=== PATIENT | female | born 1960 | race Two or more races ===

== ENCOUNTER 2018-06-06 14:25 | Inpatient (IN) | payer OTHER ==
[~2018-06-06] VITALS: Ht 160 cm; Wt 75.3 kg
[2018-06-06 14:47] VITALS: BP 129/70
[2018-06-06] MEDS ORDERED: GLIPIZIDE5 MG ORAL (15:00)
[2018-06-06] MEDS ORDERED: ZOCOR20 MG ORAL (15:00)
[2018-06-06] MEDS ORDERED: METHIMAZOLE10 MG PO (15:00)
[2018-06-06] MEDS ORDERED: METFORMIN HCL1000 M1 ORAL (15:00)
[2018-06-06] MEDS ORDERED: HUMULIN N100 UNIT/1 SUBQ ×2 (15:00)
[2018-06-06] MEDS ORDERED: PROPRANOLOL HCL20 MG ORAL (15:00)
--- NOTE | 2018-06-06 15:13 | Emergency Room Report ---
History of Present Illness General Chief Complaint: Fever Source: Patient Present Illness HPI 57-year-old female, diabetes, hypertension, high cholesterol, presenting with fever chills, vomiting diarrhea, urinary frequency and dysuria for the last 4 days. Patient states that everything started on Monday where she suddenly got the chills. Since then she's had about 3 episodes of watery nonbloody diarrhea per day. Also some is nauseous and is vomiting. Can't keep anything down. Says that it pruett when she urinates. Went to her PCPs office who sent her straight to the emergency room. She took antibiotics 2 months ago, no recent travel. She did get her flu shot. She has no sick contacts Allergies: Coded Allergies: No Known Allergies (Unverified , 06/06/18) Patient History Past Medical History: see triage record Past Surgical History: none Pertinent Family History: none Reviewed Nursing Documentation: PMH: Agreed; PSxH: Agreed Nursing Documentation-PMH Past Medical History: No History, Except For Hx Diabetes: Yes Review of Systems All Other Systems: negative except mentioned in HPI Physical Exam Vital Signs Date Time Temp Pulse Resp B/P (MAP) Pulse Ox O2 Delivery O2 Flow Rate FiO2 06/06/18 14:42 98.1 94 18 129/70 98 Room Air Sp02 EP Interpretation: reviewed, normal General Appearance: alert, GCS 15, non-toxic, moderate distress Head: normocephalic, atraumatic Eyes: bilateral eye normal inspection, bilateral eye PERRL, bilateral eye EOMI ENT: normal ENT inspection, normal pharynx, normal voice, moist mucus membranes Neck: normal inspection, full range of motion, supple Respiratory: normal inspection, lungs clear, normal breath sounds, no respiratory distress, no retraction, no wheezing, speaking full sentences, chest symmetrical Cardiovascular #1: tachycardia Cardiovascular #2: 2+ radial (R), 2+ radial (L) Gastrointestinal: other - Slight suprapubic tenderness, no guarding no rebound , nontender elsewhere in her abdomen Musculoskeletal: normal inspection, back normal, normal range of motion, non- tender Neurologic: normal inspection, alert, oriented x3, responsive, motor strength/ tone normal, sensory intact, normal gait, speech normal Psychiatric: normal inspection, judgement/insight normal, memory normal Skin: normal inspection, normal color, no rash, warm/dry, well hydrated, normal turgor Procedures Critical Care Time Critical Care Time 40 minutes of CC time 57-year-old female with fever chills, septic VS: Tachycardic 140s Airway patent. Not hypoxic. PLAN: IV access, labs, lactate, troponin, Blood/Urine Cx, Abx, IVF Anticipate admission to Tele vs. [facility] CC time also includes review of labs, review of EMR, discussion with family and paperwork from SNF, d/w hospitalist CC could include dosing of pressors, additional Abx CC time does not include procedures Medical Decision Making Diagnostic Impression: Primary Impression: Sepsis Additional Impressions: Influenza UTI (urinary tract infection) ER Course 57-year-old female presented with fever chills nausea vomiting diarrhea DDX: Sepsis 2/2 UTI, PNA, infectious diarrhea, bacteremia, URI/flu Plan: IV access - 1 L bolus Obtain labs including cbc, bmp, blood culture, blood gas, lactate, ua, ucx CXR EKG ER course: Pt's airway remains patent Patient's BP has remained stable with MAP > 65 she remains tachy, given fluids zosyn for UTI and tamiflu for influenza Sepsis Re-examination Time: 5:08 VS: Temp 98.1 HR 120 BP 134/60 RR 20 CVS: RRR Respiratory: Lungs clear bilaterally Peripheral pulses: 2+ radial Capillary refill: <2 seconds Skin exam: warm, dry, no rash, not mottled Disposition: Patient will admitted to telemetry - Dr Lemos covering for Dr Lord Patient requires close monitoring of respiratory/hemodynamic status and continuation of IV antibiotics. D/W Hospitalist Please note that this Emergency Department Report was dictated using [email or web address] assistant technology software, occasionally this can lead to erroneous entry secondary to interpretation by the dictation equipment. EKG Diagnostic Results EP Interpretation: Yes Rate: Tachycardic Rhythm: NSR ST Segments: No acute ramos, PVCs ASA given to patient: No Rhythm Strip EP Interpretation: Yes Rate: 140 Rhythm: NSR, no PVCs, no ectopy Chest X-ray CXR: Ordered: Yes 1 view Indication: Fever EP interpretation: Yes Interpretation: No consolidation, no effusion, no PTX, no acute cardiopulmonary disease Impression: No acute disease Electronically signed by Ravi Rodriguez MD Last Vital Signs Date Time Temp Pulse Resp B/P (MAP) Pulse Ox O2 Delivery O2 Flow Rate FiO2 06/06/18 14:47 94 18 Room Air 06/06/18 14:42 98.1 129/70 98 Disposition: ADMITTED INPATIENT Condition: Critical Ravi Rodriguez M.D. Jun 06, 2018 15:13
[2018-06-06 15:15] LABS: ANION GAP 13 mmol/L (5-15); BLOOD UREA NITROGEN 31 mg/dL (7-18); CALCIUM 9.2 MG/DL (8.5-10.1); CARBON DIOXIDE 22 MMOL/L (21-32); CHLORIDE 93 MMOL/L (98-107); CREATININE 1.3 MG/DL (0.55-1.30); SODIUM 128 MMOL/L (136-145)
[2018-06-06 15:23] LABS: HEMATOCRIT 41.5 % (37.0-47.0); HEMOGLOBIN 13.9 G/DL (12.0-16.0); MEAN CORPUSCULAR VOLUME 79 FL (80-99); PLATELET COUNT 261 K/UL (150-450); RED BLOOD COUNT 5.23 M/UL (4.20-5.40); RED CELL DISTRIBUTION WIDTH 11.1 % (11.6-14.8)
[2018-06-06] MEDS ORDERED: Piperacillin/Tazobactam 3.375 GM in NS 110 ML IVPB ONE (15:30)
[2018-06-06 15:33] LABS: ALANINE AMINOTRANSFERASE 56 U/L (12-78); ALBUMIN 2.4 G/DL (3.4-5.0); ALBUMIN/GLOBULIN RATIO 0.4 (1.0-2.7); ALKALINE PHOSPHATASE 289 U/L (46-116); ASPARTATE AMINO TRANSFERASE 38 U/L (15-37); BILIRUBIN,TOTAL 1.5 MG/DL (0.2-1.0)
[2018-06-06 15:34] LABS: BILIRUBIN,DIRECT 0.9 MG/DL (0.0-0.3)
[2018-06-06] MEDS ORDERED: Oseltamivir 75mg cap ORAL STA (15:40)
--- NOTE | 2018-06-06 16:20 | Diagnostic Imaging Report ---
Indication: Chest pain Technique: One view of the chest Comparison: none Findings: Lungs and pleural spaces are clear. Heart size is normal Impression: No acute process
[2018-06-06 16:38] VITALS: BP 147/63
[2018-06-06 16:40] LABS: BILIRUBIN, URINE NEGATIVE (NEGATIVE); NITRITE,URINE NEGATIVE (NEGATIVE); UROBILINOGEN,URINE NORMAL MG/DL (0.0-1.0)
[2018-06-06 16:42] LABS: COLOR,URINE YELLOW; GLUCOSE, URINE (UA) 1+ (NEGATIVE); KETONES,URINE NEGATIVE (NEGATIVE); LEUKOCYTE ESTERASE ,URINE 1+ (NEGATIVE); PH,URINE 6.5 (4.5-8.0); PROTEIN,URINE 3+ (NEGATIVE)
[2018-06-06 16:47] LABS: APPEARANCE,URINE SLIGHTLY CLOUDY
[2018-06-06] MEDS ORDERED: SYNTHROID25 MCG ORAL (17:55)
[2018-06-06] MEDS ORDERED: IBUPROFEN600 MG ORAL (17:55)
[2018-06-06] MEDS ORDERED: [UNRECOGNIZED DRUG - CODE] PO (18:07)
[2018-06-06] MEDS ORDERED: GLUCOTROL5 MG ORAL (18:14)
[2018-06-06] MEDS ORDERED: INDERAL20 MG PO (18:14)
[2018-06-06] MEDS ORDERED: Acetaminophen 650mg/20.3ml NG PRN (18:15)
[2018-06-06] MEDS ORDERED: Morphine Sulfate 2mg/ml Inj IVP PRN (18:15)
[2018-06-06] MEDS ORDERED: Atorvastatin 20mg tab ORAL SCH ×2 (18:31→23:45)
--- NOTE | 2018-06-06 18:39 | History and Physical ---
History of Present Illness General Reason for Hospitalization: Fever Present Illness HPI 57 yo female with h/o htn, dm, hld presents with complaints of nausea/vomiting, fevers/chills that started on Monday. States she has been feeling worse and worse and is unsure why. States she is compliant with all of her medications. Patient denies any diarrhea/constipation however admits to burning urination since Monday as well, along with increased frequency, denies hematuria. Denies being aware of being around any sick contacts.Denies any cp, sob, palpitations. Patient admitted to the ED and noted to have a positive UA and +influenza A. Denies smoking, alcohol, or drug use. code status reviewed with patient, would like to remain full code. Allergies: Coded Allergies: No Known Allergies (Unverified , 06/06/18) Medication History Scheduled Levothyroxine Sodium* (Synthroid*), 25 MCG ORAL DAILY, (Reported) Metformin Hcl* (Metformin Hcl*), 1,000 MG ORAL BID, (Reported) Nph, Human Insulin Isophane (Humulin N), 30 UNITS SUBQ BEDTIME, (Reported) Nph, Human Insulin Isophane (Humulin N), 15 UNITS SUBQ DAILY, (Reported) Simvastatin (Zocor), 20 MG ORAL BEDTIME, (Reported) [Xl-3], 1 TAB PO Q4HR, (Reported) Scheduled PRN Ibuprofen* (Motrin*), 600 MG ORAL Q6H PRN for For Headache, (Reported) Discontinued Medications Methimazole (Methimazole), 25 MG PO BID, (Reported) Discontinued Reason: MD discontinued med Patient History History Provided By: Patient Healthcare decision maker Resuscitation status Advanced Directive on File Family History Family History: Family history was reviewed; no changes noted. Review of Systems Constitutional: Reports: chills, fever, weakness Eye: Reports: no symptoms ENT: Reports: no symptoms Respiratory: Reports: no symptoms Cardiovascular: Reports: no symptoms Gastrointestinal: Reports: no symptoms Genitourinary: Reports: dysuria, frequency Musculoskeletal: Reports: no symptoms Skin: Reports: no symptoms Psychiatric: Reports: no symptoms Neurological: Reports: no symptoms Endocrine: Reports: no symptoms Hematologic/Lymphatic: Reports: no symptoms Physical Exam General Appearance: no apparent distress, alert HEENT: normocephalic, atraumatic, anicteric, pharynx normal, supple, no JVD Neck: non-tender, normal alignment, supple Respiratory/Chest: chest wall non-tender, lungs clear, normal breath sounds, no respiratory distress, no accessory muscle use Cardiovascular/Chest: normal peripheral pulses, normal rate, regular rhythm Abdomen: normal bowel sounds, non tender, soft Extremities: normal range of motion, non-tender, normal inspection, no calf tenderness Skin Exam: normal pigmentation, warm/dry, no diaphoresis 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, no motor/sensory deficits, alert, oriented x 3, responsive, normal mood/affect Last 24 Hour Vital Signs Date Time Temp Pulse Resp B/P (MAP) Pulse Ox O2 Delivery O2 Flow Rate FiO2 06/06/18 16:38 99.0 112 24 147/63 96 Room Air 06/06/18 14:47 98.1 18 129/70 98 Room Air 06/06/18 14:47 94 18 Room Air 06/06/18 14:42 98.1 94 18 129/70 98 Room Air Laboratory Tests Test 06/06/18 14:55 06/06/18 16:08 06/06/18 16:52 White Blood Count 17.0 K/UL (4.8-10.8) H Red Blood Count 5.23 M/UL (4.20-5.40) Hemoglobin 13.9 G/DL (12.0-16.0) Hematocrit 41.5 % (37.0-47.0) Mean Corpuscular Volume 79 FL (80-99) L Mean Corpuscular Hemoglobin 26.5 PG (27.0-31.0) L Mean Corpuscular Hemoglobin Concent 33.4 G/DL (32.0-36.0) Red Cell Distribution Width 11.1 % (11.6-14.8) L Platelet Count 261 K/UL (150-450) Mean Platelet Volume 9.2 FL (6.5-10.1) Neutrophils (%) (Auto) % (45.0-75.0) Lymphocytes (%) (Auto) % (20.0-45.0) Monocytes (%) (Auto) % (1.0-10.0) Eosinophils (%) (Auto) % (0.0-3.0) Basophils (%) (Auto) % (0.0-2.0) Differential Total Cells Counted 100 Neutrophils % (Manual) 87 % (45-75) H Lymphocytes % (Manual) 7 % (20-45) L Monocytes % (Manual) 4 % (1-10) Eosinophils % (Manual) 0 % (0-3) Basophils % (Manual) 0 % (0-2) Band Neutrophils 2 % (0-8) Platelet Estimate Adequate Platelet Morphology Normal Red Blood Cell Morphology Normal Sodium Level 128 MMOL/L (136-145) L Potassium Level 3.0 MMOL/L (3.5-5.1) L Chloride Level 93 MMOL/L (98-107) L Carbon Dioxide Level 22 MMOL/L (21-32) Anion Gap 13 mmol/L (5-15) Blood Urea Nitrogen 31 mg/dL (7-18) H Creatinine 1.3 MG/DL (0.55-1.30) Estimat Glomerular Filtration Rate 42.5 mL/min (>60) Glucose Level 321 MG/DL (74-106) H Lactic Acid Level 3.40 mmol/L (0.4-2.0) H 1.80 mmol/L (0.66-2.22) Calcium Level 9.2 MG/DL (8.5-10.1) Total Bilirubin 1.5 MG/DL (0.2-1.0) H Direct Bilirubin 0.9 MG/DL (0.0-0.3) H Aspartate Amino Transf (AST/SGOT) 38 U/L (15-37) H Alanine Aminotransferase (ALT/SGPT) 56 U/L (12-78) Alkaline Phosphatase 289 U/L (46-116) H Troponin I 0.000 ng/mL (0.000-0.056) Total Protein 8.1 G/DL (6.4-8.2) Albumin 2.4 G/DL (3.4-5.0) L Globulin 5.7 g/dL Albumin/Globulin Ratio 0.4 (1.0-2.7) L Urine Color Yellow Urine Appearance Slightly cloudy Urine pH 6.5 (4.5-8.0) Urine Specific [place] 1.020 (1.005-1.035) Urine Protein 3+ (NEGATIVE) H Urine Glucose (UA) 1+ (NEGATIVE) H Urine Ketones Negative (NEGATIVE) Urine Blood 4+ (NEGATIVE) H Urine Nitrite Negative (NEGATIVE) Urine Bilirubin Negative (NEGATIVE) Urine Urobilinogen Normal MG/DL (0.0-1.0) Urine Leukocyte Esterase 1+ (NEGATIVE) H Urine RBC 5-10 /HPF (0 - 2) H Urine WBC 10-15 /HPF (0 - 2) H Urine Squamous Epithelial Cells Few /LPF (NONE/OCC) Urine Bacteria Moderate /HPF (NONE) H Microbiology Date/Time Source Procedure Growth Status 06/06/18 14:50 Nasal Nares Influenza Types A,B Antigen (TAISHA) - Final Complete Height (Feet): 5 Weight (Pounds): 170 Medications Current Medications Medications (Trade) Dose Ordered Sig/Fernanda Route PRN Reason Start Time Stop Time Status Last Admin Dose Admin Sodium Chloride 1,000 ml @ 999 mls/hr Q1H1M ONCE IV 06/06/18 17:15 06/06/18 18:15 06/06/18 17:26 Assessment/Plan Problem List: (1) Sepsis Assessment & Plan: fever T 39.9, wbc 17, LA 3.8, influenza positive, UA + for uti vanc, zosyn, and tamifly blood cx x 2 sent influenza A + tele inpatient admit i/o tylenol prn for fevers pain control IVF recheck LA ICD Codes: A41.9 - Sepsis, unspecified organism SNOMED: 71099766 (2) Influenza Assessment & Plan: tamiflu started fluids for hydration management per #1 ICD Codes: J11.1 - Influenza due to unidentified influenza virus with other respiratory manifestations SNOMED: 8791365 (3) UTI (urinary tract infection) Assessment & Plan: ua + pending Ucx cont abx ICD Codes: N39.0 - Urinary tract infection, site not specified SNOMED: 21700937 (4) Lactic acid blood increased Assessment & Plan: elevated on admit 3.6 recheck LA fluids due to sepsis ICD Codes: R79.89 - Other specified abnormal findings of blood chemistry SNOMED: 5930627 (5) Essential hypertension Assessment & Plan: resume home meds takes metoprolol 25mg bid tele ICD Codes: I10 - Essential (primary) hypertension SNOMED: 41068176 (6) Diabetes Assessment & Plan: iss accuchecks on metformin and insulin at home ppx: heparin, scd diet: ccd5 Please call at any time for any questions Thank you, Romero Lemos MD ICD Codes: E11.9 - Type 2 diabetes mellitus without complications SNOMED: 75707150 Status: stable Assessment/Plan I have spent over 70 mins in this patient's care and over 35 mins in face to face time including coordinating care. Romero Lemos MD Jun 06, 2018 18:39
[2018-06-06 18:48] VITALS: BP 102/65
[2018-06-06 19:30] VITALS: BP 110/73
[2018-06-06 21:00] VITALS: BP 105/71
[2018-06-06] MEDS: Metoprolol 25mg tab ORAL SCH (21:47)
[2018-06-06] MEDS: NovoLOG Insulin Flexpen SUBQ SCH (21:57)
[2018-06-06] MEDS: Heparin 5000 units/ml inj SUBQ SCH (21:58)
[2018-06-06] MEDS: Vancomycin 1 GM in D5W 275 ML IVPB SCH (22:02)
[2018-06-07] VITALS: BP 143/73
[2018-06-07] MEDS: Piperacillin/Tazobactam 3.375 GM in NS 110 ML IVPB SCH ×3 (01:35→17:19)
[2018-06-07 04:00] VITALS: BP 132/71
[2018-06-07 04:56] LABS: BASOPHILS % (AUTO) 0.5 % (0.0-2.0); HEMOGLOBIN 11.8 G/DL (12.0-16.0); LYMPHOCYTES % (AUTO) 6.5 % (20.0-45.0); MEAN CORPUSCULAR VOLUME 79 FL (80-99); MONOCYTES % (AUTO) 8.2 % (1.0-10.0); NEUTROPHILS % (AUTO) 84.8 % (45.0-75.0); PLATELET COUNT 212 K/UL (150-450); RED BLOOD COUNT 4.29 M/UL (4.20-5.40); RED CELL DISTRIBUTION WIDTH 11.2 % (11.6-14.8)
[2018-06-07 05:47] LABS: ANION GAP 8 mmol/L (5-15); BLOOD UREA NITROGEN 27 mg/dL (7-18); CALCIUM 8.4 MG/DL (8.5-10.1); CARBON DIOXIDE 25 MMOL/L (21-32); CHLORIDE 102 MMOL/L (98-107); SODIUM 135 MMOL/L (136-145)
[2018-06-07] MEDS: Levothyroxine 25mcg tab ORAL SCH (05:55)
[2018-06-07] MEDS: Heparin 5000 units/ml inj SUBQ SCH ×3 (06:03→22:17)
[2018-06-07] MEDS: NovoLOG Insulin Flexpen SUBQ SCH ×4 (06:03→22:11)
[2018-06-07 08:00] VITALS: BP 143/67
[2018-06-07] MEDS: GlipiZIDE 5mg tab ORAL SCH (08:24)
[2018-06-07] MEDS: Metoprolol 25mg tab ORAL SCH ×2 (08:25→20:38)
[2018-06-07] MEDS: Oseltamivir 75mg cap ORAL SCH ×2 (08:25→17:35)
--- NOTE | 2018-06-07 11:31 | General Progress Note ---
Assessment/Plan Problem List: (1) Sepsis Assessment & Plan: had fevers over night influenza + bcx pending ucx growing gram neg cont abx cont tamiflu ICD Codes: A41.9 - Sepsis, unspecified organism SNOMED: 01212364 (2) Influenza Assessment & Plan: tamiflu started fluids for hydration management per #1 ICD Codes: J11.1 - Influenza due to unidentified influenza virus with other respiratory manifestations SNOMED: 1758041 (3) UTI (urinary tract infection) Assessment & Plan: ua + Ucx groing gram neg cont abx ICD Codes: N39.0 - Urinary tract infection, site not specified SNOMED: 35895141 Qualifiers: Qualified Codes: N30.00 - Acute cystitis without hematuria (4) Lactic acid blood increased Assessment & Plan: elevated on admit 3.6 recheck [place] fluids due to sepsis ICD Codes: R79.89 - Other specified abnormal findings of blood chemistry SNOMED: 7285232 (5) Essential hypertension Assessment & Plan: resume home meds takes metoprolol 25mg bid tele ICD Codes: I10 - Essential (primary) hypertension SNOMED: 48775714 (6) Diabetes Assessment & Plan: iss accuchecks on metformin and insulin at home ppx: heparin, scd diet: ccd5 Please call at any time for any questions Thank you, Romero Lemos MD ICD Codes: E11.9 - Type 2 diabetes mellitus without complications SNOMED: 51642561 Qualifiers: Qualified Codes: E10.9 - Type 1 diabetes mellitus without complications Status: doing well, stable Assessment/Plan I have spent over 70 mins in this patient's care and over 35 mins in face to face time including coordinating care. Subjective Allergies: Coded Allergies: No Known Allergies (Unverified , 06/06/18) All Systems: reviewed and negative except above Subjective patient feeling much better today, states she had fevers and chills overnight denies any chest pain or sob states she is scared to go back home because she was so sick Objective Last 24 Hour Vital Signs Date Time Temp Pulse Resp B/P (MAP) Pulse Ox O2 Delivery O2 Flow Rate FiO2 06/07/18 08:25 112 143/67 06/07/18 08:00 96.7 112 20 143/67 (92) 98 06/07/18 04:00 97.9 107 20 132/71 (91) 96 06/07/18 04:00 104 06/07/18 02:06 99.2 06/07/18 00:00 127 06/07/18 00:00 97.7 119 20 143/73 (96) 96 06/06/18 21:47 105 110/63 06/06/18 21:09 100.1 105 25 105/71 96 Room Air 06/06/18 21:00 Room Air 06/06/18 21:00 100.1 105 25 105/71 96 Room Air 06/06/18 20:59 Room Air 06/06/18 19:58 126 06/06/18 19:30 100.1 105 25 110/73 96 Room Air 06/06/18 18:48 100.2 106 25 102/65 96 Room Air 06/06/18 17:56 100.2 06/06/18 16:38 99.0 112 24 147/63 96 Room Air 06/06/18 14:47 98.1 18 129/70 98 Room Air 06/06/18 14:47 94 18 Room Air 06/06/18 14:42 98.1 94 18 129/70 98 Room Air Intake and Output 06/06/18 06/07/18 19:00 07:00 Intake Total 2110 ml 452 ml Output Total 500 ml Balance 1610 ml 452 ml IV Total 2110 ml 452 ml Output Urine Total 500 ml # Voids 1 6 # Bowel Movements 5 Laboratory Tests 06/06/18 14:55: White Blood Count 17.0H, Red Blood Count 5.23, Hemoglobin 13.9, Hematocrit 41.5 , Mean Corpuscular Volume 79L, Mean Corpuscular Hemoglobin 26.5L, Mean Corpuscular Hemoglobin Concent 33.4, Red Cell Distribution Width 11.1L, Platelet Count 261, Mean Platelet Volume 9.2, Neutrophils (%) (Auto) , Lymphocytes (%) (Auto) , Monocytes (%) (Auto) , Eosinophils (%) (Auto) , Basophils (%) (Auto) , Differential Total Cells Counted 100, Neutrophils % ( Manual) 87H, Lymphocytes % (Manual) 7L, Monocytes % (Manual) 4, Eosinophils % ( Manual) 0, Basophils % (Manual) 0, Band Neutrophils 2, Platelet Estimate Adequate, Platelet Morphology Normal, Red Blood Cell Morphology Normal, Sodium Level 128L, Potassium Level 3.0L, Chloride Level 93L, Carbon Dioxide Level 22, Anion Gap 13, Blood Urea Nitrogen 31H, Creatinine 1.3, Estimat Glomerular Filtration Rate 42.5, Glucose Level 321H, Hemoglobin A1c 10.8H, Lactic Acid Level 3.40H, Calcium Level 9.2, Total Bilirubin 1.5H, Direct Bilirubin 0.9H, Aspartate Amino Transf (AST/SGOT) 38H, Alanine Aminotransferase (ALT/SGPT) 56, Alkaline Phosphatase 289H, Troponin I 0.000, Total Protein 8.1, Albumin 2.4L, Globulin 5.7, Albumin/Globulin Ratio 0.4L 06/06/18 16:08: Urine Color Yellow, Urine Appearance Slightly cloudy, Urine pH 6.5, Urine Specific [place] 1.020, Urine Protein 3+H, Urine Glucose (UA) 1+H, Urine Ketones Negative, Urine Blood 4+H, Urine Nitrite Negative, Urine Bilirubin Negative, Urine Urobilinogen Normal, Urine Leukocyte Esterase 1+H, Urine RBC 5- 10H, Urine WBC 10-15H, Urine Squamous Epithelial Cells Few, Urine Bacteria ModerateH 06/06/18 16:52: Lactic Acid Level 1.80 06/07/18 04:14: White Blood Count 17.0H, Red Blood Count 4.29, Hemoglobin 11.8L, Hematocrit 34.0L, Mean Corpuscular Volume 79L, Mean Corpuscular Hemoglobin 27.5, Mean Corpuscular Hemoglobin Concent 34.6, Red Cell Distribution Width 11.2L, Platelet Count 212, Mean Platelet Volume 9.3, Neutrophils (%) (Auto) 84.8H, Lymphocytes (%) (Auto) 6.5L, Monocytes (%) (Auto) 8.2, Eosinophils (%) (Auto) 0.0, Basophils (%) (Auto) 0.5, Sodium Level 135L, Potassium Level 3.0L, Chloride Level 102, Carbon Dioxide Level 25, Anion Gap 8, Blood Urea Nitrogen 27H, Creatinine 1.0, Estimat Glomerular Filtration Rate 57.6, Glucose Level 214# H, Calcium Level 8.4L Height (Feet): 5 Height (Inches): 3.00 Weight (Pounds): 173 General Appearance: no apparent distress, alert, lethargic EENT: PERRL/EOMI, normal ENT inspection, TMs normal, pharynx normal Neck: non-tender, normal alignment, supple, normal inspection Cardiovascular: normal peripheral pulses, normal rate, regular rhythm Respiratory/Chest: chest wall non-tender, lungs clear, normal breath sounds Abdomen: normal bowel sounds, non tender, soft, abnormal bowel sounds Extremities: normal range of motion, non-tender, normal inspection 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
[2018-06-07 12:00] VITALS: BP 137/66
[2018-06-07] MEDS: Insulin NPH SUBQ SCH ×2 (12:16→23:00)
[2018-06-07 16:00] VITALS: BP 145/64
[2018-06-07 20:00] VITALS: BP 111/53
[2018-06-07] MEDS: Vancomycin 1 GM in D5W 275 ML IVPB SCH (20:36)
[2018-06-08] VITALS: BP 120/63
[2018-06-08] MEDS: Piperacillin/Tazobactam 3.375 GM in NS 110 ML IVPB SCH ×3 (01:56→17:13)
[2018-06-08 04:00] VITALS: BP 134/72
[2018-06-08] MEDS: Levothyroxine 25mcg tab ORAL SCH (05:40)
[2018-06-08] MEDS: NovoLOG Insulin Flexpen SUBQ SCH ×4 (05:46→21:14)
[2018-06-08] MEDS: Heparin 5000 units/ml inj SUBQ SCH ×3 (05:49→21:21)
[2018-06-08 07:01] LABS: BASOPHILS % (AUTO) 0.8 % (0.0-2.0); EOSINOPHILS % (AUTO) 0.1 % (0.0-3.0); HEMATOCRIT 32.4 % (37.0-47.0); HEMOGLOBIN 11.4 G/DL (12.0-16.0); MEAN CORPUSCULAR VOLUME 80 FL (80-99); MONOCYTES % (AUTO) 8.3 % (1.0-10.0); NEUTROPHILS % (AUTO) 81.9 % (45.0-75.0); PLATELET COUNT 246 K/UL (150-450); RED BLOOD COUNT 4.06 M/UL (4.20-5.40); RED CELL DISTRIBUTION WIDTH 11.5 % (11.6-14.8)
[2018-06-08 07:21] LABS: ALANINE AMINOTRANSFERASE 50 U/L (12-78); ALBUMIN 1.8 G/DL (3.4-5.0); ALBUMIN/GLOBULIN RATIO 0.4 (1.0-2.7); ALKALINE PHOSPHATASE 359 U/L (46-116); ANION GAP 9 mmol/L (5-15); ASPARTATE AMINO TRANSFERASE 50 U/L (15-37); BILIRUBIN,TOTAL 2.4 MG/DL (0.2-1.0); BLOOD UREA NITROGEN 13 mg/dL (7-18); CALCIUM 8.2 MG/DL (8.5-10.1); CARBON DIOXIDE 26 MMOL/L (21-32); CHLORIDE 98 MMOL/L (98-107); CREATININE 0.8 MG/DL (0.55-1.30); SODIUM 134 MMOL/L (136-145)
[2018-06-08 07:24] LABS: POTASSIUM 2.7 MMOL/L (3.5-5.1)
[2018-06-08 07:28] LABS: BILIRUBIN,DIRECT 1.8 MG/DL (0.0-0.3)
[2018-06-08 07:51] VITALS: BP 130/76
--- NOTE | 2018-06-08 08:24 | General Progress Note ---
Assessment/Plan Problem List: (1) Sepsis Assessment & Plan: had fevers over night again feeling better influenza + ucx growing gram neg along with blood cx repeat blood cx ordered x 2 cont abx cont tamiflu IVF ICD Codes: A41.9 - Sepsis, unspecified organism SNOMED: 63678476 Qualifiers: Qualified Codes: A41.9 - Sepsis, unspecified organism (2) Gram-negative bacteremia Assessment & Plan: repeat bcx sent cont abx due to complicated uti ICD Codes: R78.81 - Bacteremia SNOMED: 431959656408 (3) Complicated UTI (urinary tract infection) Assessment & Plan: gram neg with bacteremia cont abx adjust abx accordingly ICD Codes: N39.0 - Urinary tract infection, site not specified SNOMED: 45730211 (4) Influenza Assessment & Plan: tamiflu started fluids for hydration management per #1 ICD Codes: J11.1 - Influenza due to unidentified influenza virus with other respiratory manifestations SNOMED: 3752034 (5) Lactic acid blood increased Assessment & Plan: elevated on admit 3.6 resolved due to sepsis ICD Codes: R79.89 - Other specified abnormal findings of blood chemistry SNOMED: 3410176 (6) Essential hypertension Assessment & Plan: resume home meds takes metoprolol 25mg bid tele ICD Codes: I10 - Essential (primary) hypertension SNOMED: 69359938 (7) Diabetes Assessment & Plan: iss accuchecks on metformin and insulin at home ppx: heparin, scd diet: ccd5 Please call at any time for any questions Thank you, Romero Lemos MD ICD Codes: E11.9 - Type 2 diabetes mellitus without complications SNOMED: 69003919 Qualifiers: Qualified Codes: E10.9 - Type 1 diabetes mellitus without complications Status: stable Assessment/Plan I have spent over 45 mins in this patient's care and over 35 mins in face to face time including coordinating care. Subjective Allergies: Coded Allergies: No Known Allergies (Unverified , 06/06/18) Subjective feeling better denies any fevers/chills however had fever overnight per nursing denies any chest pain or sob bcx x 2 were positive overnight, repeat ordered 12 point ros negative except for the above Objective Last 24 Hour Vital Signs Date Time Temp Pulse Resp B/P (MAP) Pulse Ox O2 Delivery O2 Flow Rate FiO2 06/08/18 07:51 98.9 99 19 130/76 (94) 97 06/08/18 04:00 99.8 115 20 134/72 (92) 95 06/08/18 04:00 125 06/08/18 00:00 98.4 106 20 120/63 (82) 96 06/08/18 00:00 104 06/07/18 21:00 Room Air 06/07/18 20:38 75 111/53 06/07/18 20:00 118 06/07/18 20:00 100.4 90 20 111/53 (72) 97 06/07/18 16:00 129 06/07/18 16:00 97.5 129 20 145/64 (91) 95 06/07/18 12:00 100.4 108 20 137/66 (89) 97 06/07/18 12:00 120 06/07/18 09:00 Room Air 06/07/18 08:25 112 143/67 Intake and Output 06/07/18 06/08/18 19:00 07:00 Intake Total 480 ml Output Total 1500 ml Balance 480 ml -1500 ml Intake Oral 480 ml Output Urine Total 1500 ml # Voids 1 # Bowel Movements 2 1 Laboratory Tests 06/08/18 06:10: White Blood Count 15.0H, Red Blood Count 4.06L, Hemoglobin 11.4L, Hematocrit 32.4L, Mean Corpuscular Volume 80, Mean Corpuscular Hemoglobin 28.1, Mean Corpuscular Hemoglobin Concent 35.2, Red Cell Distribution Width 11.5L, Platelet Count 246, Mean Platelet Volume 8.7, Neutrophils (%) (Auto) 81.9H, Lymphocytes (%) (Auto) 9.0L, Monocytes (%) (Auto) 8.3, Eosinophils (%) (Auto) 0.1, Basophils (%) (Auto) 0.8, Sodium Level 134L, Potassium Level 2.7*L, Chloride Level 98, Carbon Dioxide Level 26, Anion Gap 9, Blood Urea Nitrogen 13 , Creatinine 0.8, Estimat Glomerular Filtration Rate > 60, Glucose Level 186H, Calcium Level 8.2L, Total Bilirubin 2.4H, Direct Bilirubin 1.8H, Aspartate Amino Transf (AST/SGOT) 50H, Alanine Aminotransferase (ALT/SGPT) 50, Alkaline Phosphatase 359H, Total Protein 6.8, Albumin 1.8L, Globulin 5.0, Albumin/ Globulin Ratio 0.4L Height (Feet): 5 Height (Inches): 3.00 Weight (Pounds): 173 General Appearance: no apparent distress, alert, lethargic EENT: PERRL/EOMI, normal ENT inspection, TMs normal, pharynx normal Neck: non-tender, normal alignment, supple, normal inspection Cardiovascular: normal peripheral pulses, normal rate, regular rhythm Respiratory/Chest: chest wall non-tender, lungs clear, normal breath sounds, no respiratory distress, no accessory muscle use Abdomen: normal bowel sounds, non tender, soft, no organomegaly, no mass Extremities: normal range of motion, non-tender, normal inspection 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
[2018-06-08] MEDS: GlipiZIDE 5mg tab ORAL SCH (08:56)
[2018-06-08] MEDS: Oseltamivir 75mg cap ORAL SCH ×2 (08:56→18:26)
[2018-06-08] MEDS: Metoprolol 25mg tab ORAL SCH ×2 (08:56→21:21)
[2018-06-08] MEDS: Insulin NPH SUBQ SCH ×2 (09:01→21:18)
[2018-06-08 12:05] VITALS: BP 127/74
[2018-06-08] MEDS ORDERED: Tubing IV Secondary IV ONE (15:27)
[2018-06-08] MEDS ORDERED: NS 275ml ONE (15:27)
[2018-06-08 16:05] VITALS: BP 128/74
--- NOTE | 2018-06-08 16:39 | Cardiology Report ---
APPROVED REPORT EKG Measurement Heart [id number] MD [id number] Sinus tachycardia with occasional premature ventricular complexes Otherwise normal ECG
[2018-06-08 20:00] VITALS: BP 137/66
[2018-06-08] MEDS: Vancomycin 1 GM in D5W 275 ML IVPB SCH (21:15)
[2018-06-08] MEDS: Guaifenesin/DM 10ml syrup ORAL PRN (23:00)
[2018-06-09] VITALS: BP 148/73
[2018-06-09] MEDS: Piperacillin/Tazobactam 3.375 GM in NS 110 ML IVPB SCH (00:43)
[2018-06-09 04:00] VITALS: BP 142/72
[2018-06-09] MEDS: Levothyroxine 25mcg tab ORAL SCH (06:05)
[2018-06-09] MEDS: Heparin 5000 units/ml inj SUBQ SCH ×3 (06:05→21:34)
[2018-06-09] MEDS: NovoLOG Insulin Flexpen SUBQ SCH ×4 (06:05→21:00)
[2018-06-09] MEDS: Guaifenesin/DM 10ml syrup ORAL PRN ×3 (06:39→21:21)
[2018-06-09 07:58] LABS: BASOPHILS % (AUTO) 0.3 % (0.0-2.0); EOSINOPHILS % (AUTO) 0.4 % (0.0-3.0); HEMOGLOBIN 10.4 G/DL (12.0-16.0); LYMPHOCYTES % (AUTO) 12.4 % (20.0-45.0); MEAN CORPUSCULAR VOLUME 80 FL (80-99); NEUTROPHILS % (AUTO) 77.9 % (45.0-75.0); PLATELET COUNT 263 K/UL (150-450); RED BLOOD COUNT 3.87 M/UL (4.20-5.40); RED CELL DISTRIBUTION WIDTH 11.9 % (11.6-14.8); WHITE BLOOD COUNT 15.8 K/UL (4.8-10.8)
--- NOTE | 2018-06-09 08:03 | General Progress Note ---
Assessment/Plan Problem List: (1) Bacteremia due to Klebsiella pneumoniae Assessment & Plan: abx changed to lvq repeat bcx showing similar growth ID consulted repeat bcx sent ICD Codes: R78.81 - Bacteremia SNOMED: 443909011, 735120748405 (2) UTI due to Klebsiella species Assessment & Plan: cont abx ID consulted ICD Codes: N39.0 - Urinary tract infection, site not specified; B96.1 - Klebsiella pneumoniae [K. pneumoniae] as the cause of diseases classified elsewhere SNOMED: 096474285707093 (3) Sepsis Assessment & Plan: stable repeat bcx + due to klebsiella and influenza A sens to lvq ID consulted, appreciate recs ICD Codes: A41.9 - Sepsis, unspecified organism SNOMED: 42827275 Qualifiers: Qualified Codes: A41.9 - Sepsis, unspecified organism (4) Complicated UTI (urinary tract infection) Assessment & Plan: due to above cont above management ICD Codes: N39.0 - Urinary tract infection, site not specified SNOMED: 09282894 (5) Influenza Assessment & Plan: tamiflu started fluids for hydration management per above ICD Codes: J11.1 - Influenza due to unidentified influenza virus with other respiratory manifestations SNOMED: 7202349 (6) Lactic acid blood increased Assessment & Plan: elevated on admit 3.6 resolved due to sepsis ICD Codes: R79.89 - Other specified abnormal findings of blood chemistry SNOMED: 7054621 (7) Essential hypertension Assessment & Plan: resume home meds takes metoprolol 25mg bid tele ICD Codes: I10 - Essential (primary) hypertension SNOMED: 16716821 (8) Diabetes Assessment & Plan: iss accuchecks on metformin and insulin at home ppx: heparin, scd diet: ccd5 Please call at any time for any questions Thank you, Romero Lemos MD ICD Codes: E11.9 - Type 2 diabetes mellitus without complications SNOMED: 53699137 Qualifiers: Qualified Codes: E10.9 - Type 1 diabetes mellitus without complications Status: stable Assessment/Plan I have spent over 45 mins in this patient's care and over 35 mins in face to face time including coordinating care. Subjective Allergies: Coded Allergies: No Known Allergies (Unverified , 06/06/18) Subjective denies any complaints feeling better bcx and repeat bcx along with ucx growing klebsiella, sens to lvq repeat bcx sent denies fevers/chills/nausea/vomiting/cp/sob 12 point ros negative except for the above Objective Last 24 Hour Vital Signs Date Time Temp Pulse Resp B/P (MAP) Pulse Ox O2 Delivery O2 Flow Rate FiO2 06/09/18 04:00 116 06/09/18 04:00 99.1 105 19 142/72 (95) 95 06/09/18 01:00 108 06/09/18 00:00 99.1 104 20 148/73 (98) 96 06/09/18 00:00 93 06/08/18 21:21 108 137/66 06/08/18 21:00 Room Air 06/08/18 20:00 99.5 108 20 137/66 (89) 96 06/08/18 20:00 116 06/08/18 16:05 96.8 101 20 128/74 (92) 96 06/08/18 15:28 107 06/08/18 12:05 98.6 95 20 127/74 (91) 97 06/08/18 12:00 97 06/08/18 09:33 Room Air 06/08/18 08:56 100 130/76 06/08/18 08:00 100 Intake and Output 06/08/18 06/09/18 19:00 07:00 Intake Total 1400 ml 800 ml Output Total 1800 ml 2500 ml Balance -400 ml -1700 ml Intake Oral 1400 ml 800 ml Output Urine Total 1800 ml 2500 ml # Voids 1 # Bowel Movements 2 Laboratory Tests 06/08/18 23:20: Potassium Level 2.7*L 06/09/18 06:02: Potassium Level [Pending], White Blood Count [Pending], Red Blood Count [Pending ], Hemoglobin [Pending], Hematocrit [Pending], Mean Corpuscular Volume [Pending] , Mean Corpuscular Hemoglobin [Pending], Mean Corpuscular Hemoglobin Concent [ Pending], Red Cell Distribution Width [Pending], Platelet Count [Pending], Mean Platelet Volume [Pending], Neutrophils (%) (Auto) [Pending], Lymphocytes (%) ( Auto) [Pending], Monocytes (%) (Auto) [Pending], Eosinophils (%) (Auto) [Pending ], Basophils (%) (Auto) [Pending], Sodium Level [Pending], Chloride Level [ Pending], Carbon Dioxide Level [Pending], Blood Urea Nitrogen [Pending], Creatinine [Pending], Estimat Glomerular Filtration Rate [Pending], Glucose Level [Pending], Calcium Level [Pending] Height (Feet): 5 Height (Inches): 3.00 Weight (Pounds): 173 General Appearance: no apparent distress, alert EENT: PERRL/EOMI, TMs normal, pharynx normal Neck: non-tender, normal alignment, supple, normal inspection Cardiovascular: normal peripheral pulses, normal rate, regular rhythm Respiratory/Chest: chest wall non-tender, lungs clear, normal breath sounds, no respiratory distress, no accessory muscle use Abdomen: normal bowel sounds, non tender, soft, no organomegaly, no mass Extremities: normal range of motion, non-tender, normal inspection 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
[2018-06-09 08:13] LABS: ANION GAP 7 mmol/L (5-15); BLOOD UREA NITROGEN 11 mg/dL (7-18); CALCIUM 8.1 MG/DL (8.5-10.1); CARBON DIOXIDE 31 MMOL/L (21-32); CHLORIDE 104 MMOL/L (98-107); CREATININE 0.6 MG/DL (0.55-1.30); POTASSIUM 3.1 MMOL/L (3.5-5.1); SODIUM 142 MMOL/L (136-145)
[2018-06-09 08:15] VITALS: BP 127/68
[2018-06-09] MEDS: Metoprolol 25mg tab ORAL SCH ×2 (09:23→21:22)
[2018-06-09] MEDS: Oseltamivir 75mg cap ORAL SCH ×2 (09:23→17:25)
[2018-06-09] MEDS: GlipiZIDE 5mg tab ORAL SCH (09:23)
[2018-06-09] MEDS: Insulin NPH SUBQ SCH ×2 (09:32→21:32)
--- NOTE | 2018-06-09 10:56 | Consultation ---
Consult Note Consult Note # [id number] Ollie Miguel MD Jun 09, 2018 10:56
[2018-06-09 12:00] VITALS: BP 139/69
--- NOTE | 2018-06-09 15:26 | Diagnostic Imaging Report ---
EXAM: US Abdomen Complete CLINICAL HISTORY: ABD PAIN TECHNIQUE: Real-time ultrasound of the abdomen (complete) with image documentation. COMPARISON: No relevant prior studies available. FINDINGS: Liver: Dense enlarged liver may be fatty. Liver measures 19.3 cm. No intrahepatic bile duct dilation. Gallbladder: Gallbladder wall normal, 1.7 mm. No gallstones. Negative Dickinson's sign. 2 Common bile duct: CBD normal, 4.4 mm. No stones. No dilation. Pancreas: Unremarkable as visualized. Kidneys: Right kidney measures 13.6 x 6.3 x 7.8 cm. Left kidney measures 12.8 x 5.6 x 6.7 cm. No stones. No hydronephrosis. Spleen: Spleen measures 10.5 cm. Aorta: Unremarkable. No aneurysm. Inferior vena cava: Unremarkable. IMPRESSION: 1. Dense enlarged liver may be fatty. 2. No cholelithiasis or acute cholecystitis.
--- NOTE | 2018-06-09 15:45 | Consultation ---
DATE OF CONSULTATION: 06/09/2018 INFECTIOUS DISEASES CONSULTATION CONSULTING PHYSICIAN: Ollie Miguel M.D. REFERRING PHYSICIAN: Dr. Romero Lemos. REASON FOR CONSULTATION: Evaluation of the patient for bacteremia, UTI, influenza. HISTORY OF PRESENT ILLNESS: The patient is a 57-year-old female with multiple medical problems as listed below, who was admitted to this medical center due to nausea, vomiting, fever, and chills. The patient also has been having dysuria. Workup was suggestive of urinary tract infection. Urine culture is growing klebsiella. Antibiotic treatment, the patient still has persistent bacteremia. Fever has improved. Overall, the patient is feeling better. The patient has worsening of liver function test. Infectious Disease consultation has been requested for further evaluation of the patient's antibiotic management. The patient's also rapid influenza A test came positive at the time of admission. PAST MEDICAL HISTORY: 1. . 2. Hyperlipidemia. 3. Hypertension. 4. Diabetes. MEDICATIONS: Levaquin. PHYSICAL EXAMINATION: VITAL SIGNS: Temperature 98.4, blood pressure 122/68, pulse 109, respiratory rate 18, and T-max 100.4. HEENT: No pale conjunctivae. No icterus. NECK: No lymphadenopathy. CHEST: Clear. HEART: S1 and S2. ABDOMEN: Soft, obese, mild epigastric tenderness. No flank tenderness at the time of exam. EXTREMITIES: No cyanosis at this time. NEUROLOGIC: Currently awake and alert. LABORATORY AND DIAGNOSTIC DATA: White blood cells 15.8, hemoglobin 10, platelets 265,000. UA, 10 to 15 white blood cells. BUN 11, creatinine 0.8. AST 50, ALT 50, alkaline phosphatase 259. Total bilirubin 2.4. Direct bilirubin 1.8. Blood culture is growing klebsiella. Urine culture is growing klebsiella. Chest x-ray, NAPD. Rapid influenza A test positive. ASSESSMENT: The patient is a 57-year-old female with multiple medical problems, who has: 1. Fever. 2. Leukocytosis. 3. Influenza A positive. 4. Urinary tract infection (Klebsiella pneumoniae, rule out probable urinary obstruction). 5. Bacteremia due to urinary tract infection. 6. Elevated alkaline phosphatase and hyperbilirubinemia, rule out urinary obstruction/cholangitis. 7. Anemia. PLAN: 1. We will continue the patient on Tamiflu day #2/5, we will continue the patient on Levaquin day #1. 2. Status post Zosyn day #2. 3. Monitor repeat blood cultures. 4. Ultrasound of the abdomen, evaluation of the trach/liver/rule out urinary obstruction. 5. Monitor CBC. 6. Monitor BMP. 7. Monitor liver function tests. 8. Based on the patient's clinical course and labs, we will do further recommendation. Thank you, Dr. Lemos, for allowing me to participate in the care of this patient. I will follow the patient with you during this hospitalization. Aaron Bush JOB#: [id number] CC:
[2018-06-09 15:58] VITALS: BP 131/64
[2018-06-09 20:00] VITALS: BP 121/68
[2018-06-10] VITALS: BP 141/70
[2018-06-10 04:00] VITALS: BP 141/77
[2018-06-10 06:00] LABS: BASOPHILS % (AUTO) 0.9 % (0.0-2.0); EOSINOPHILS % (AUTO) 0.3 % (0.0-3.0); HEMATOCRIT 31.6 % (37.0-47.0); HEMOGLOBIN 10.6 G/DL (12.0-16.0); LYMPHOCYTES % (AUTO) 9.3 % (20.0-45.0); MEAN CORPUSCULAR VOLUME 80 FL (80-99); MONOCYTES % (AUTO) 9.7 % (1.0-10.0); NEUTROPHILS % (AUTO) 79.9 % (45.0-75.0); PLATELET COUNT 327 K/UL (150-450); RED BLOOD COUNT 3.94 M/UL (4.20-5.40); RED CELL DISTRIBUTION WIDTH 11.8 % (11.6-14.8)
[2018-06-10 06:11] LABS: ANION GAP 9 mmol/L (5-15); BLOOD UREA NITROGEN 11 mg/dL (7-18); CALCIUM 8.5 MG/DL (8.5-10.1); CARBON DIOXIDE 31 MMOL/L (21-32); CHLORIDE 102 MMOL/L (98-107); CREATININE 0.7 MG/DL (0.55-1.30); SODIUM 142 MMOL/L (136-145)
[2018-06-10] MEDS: Levothyroxine 25mcg tab ORAL SCH (06:20)
[2018-06-10 06:24] LABS: POTASSIUM 2.7 MMOL/L (3.5-5.1)
[2018-06-10] MEDS: Heparin 5000 units/ml inj SUBQ SCH ×3 (06:27→22:11)
[2018-06-10] MEDS: NovoLOG Insulin Flexpen SUBQ SCH ×4 (06:27→22:12)
--- NOTE | 2018-06-10 06:45 | General Progress Note ---
Assessment/Plan Problem List: (1) Bacteremia due to Klebsiella pneumoniae Assessment & Plan: abx changed to lvq repeat bcx showing similar growth ID consulted, US abd showing fatty liver repeat bcx sent pending ICD Codes: R78.81 - Bacteremia SNOMED: 168396580, 013629850270 (2) UTI due to Klebsiella species Assessment & Plan: cont abx ID consulted ICD Codes: N39.0 - Urinary tract infection, site not specified; B96.1 - Klebsiella pneumoniae [K. pneumoniae] as the cause of diseases classified elsewhere SNOMED: 843785251563409 (3) Sepsis Assessment & Plan: stable repeat bcx + due to klebsiella and influenza A sens to lvq ID consulted, appreciate recs ICD Codes: A41.9 - Sepsis, unspecified organism SNOMED: 08157818 Qualifiers: Qualified Codes: A41.9 - Sepsis, unspecified organism (4) Complicated UTI (urinary tract infection) Assessment & Plan: due to above cont above management ICD Codes: N39.0 - Urinary tract infection, site not specified SNOMED: 91438622 (5) Influenza Assessment & Plan: tamiflu started fluids for hydration management per above ICD Codes: J11.1 - Influenza due to unidentified influenza virus with other respiratory manifestations SNOMED: 4544574 (6) Lactic acid blood increased Assessment & Plan: elevated on admit 3.6 resolved due to sepsis ICD Codes: R79.89 - Other specified abnormal findings of blood chemistry SNOMED: 0874896 (7) Essential hypertension Assessment & Plan: resume home meds takes metoprolol 25mg bid tele ICD Codes: I10 - Essential (primary) hypertension SNOMED: 36794472 (8) Diabetes Assessment & Plan: iss accuchecks on metformin and insulin at home ppx: heparin, scd diet: ccd5 Please call at any time for any questions Thank you, Romero Lemos MD ICD Codes: E11.9 - Type 2 diabetes mellitus without complications SNOMED: 44560838 Qualifiers: Qualified Codes: E10.9 - Type 1 diabetes mellitus without complications (9) Hypomagnesemia Assessment & Plan: replenish monitor ICD Codes: E83.42 - Hypomagnesemia SNOMED: 436468540 (10) Hypokalemia Assessment & Plan: k 2.7 replenish k and mg ICD Codes: E87.6 - Hypokalemia SNOMED: 93488634 Assessment/Plan I have spent over 45 mins in this patient's care and over 35 mins in face to face time including coordinating care. Subjective Allergies: Coded Allergies: No Known Allergies (Unverified , 06/06/18) Subjective no acute events overnight denies any complaints denies fevers/chills/nausea/vomiting 12 point ros negative except for the above Objective Last 24 Hour Vital Signs Date Time Temp Pulse Resp B/P (MAP) Pulse Ox O2 Delivery O2 Flow Rate FiO2 06/10/18 04:00 113 06/10/18 04:00 100.1 133 22 141/77 (98) 93 06/10/18 00:00 99.6 103 20 141/70 (93) 98 06/10/18 00:00 116 06/09/18 21:22 104 140/72 06/09/18 21:00 Room Air 06/09/18 20:00 99.0 99 20 121/68 (85) 96 06/09/18 20:00 114 06/09/18 16:00 100 06/09/18 15:58 99.1 103 22 131/64 (86) 93 06/09/18 12:00 109 06/09/18 12:00 98.6 108 20 139/69 (92) 95 06/09/18 09:23 109 127/68 06/09/18 09:00 Room Air 06/09/18 08:15 98.4 109 22 127/68 (87) 95 06/09/18 07:43 108 Intake and Output 06/09/18 06/10/18 18:59 06:59 Intake Total 1500 ml 800 ml Output Total 1600 ml 2325 ml Balance -100 ml -1525 ml Intake Oral 1500 ml 800 ml Output Urine Total 1600 ml 2325 ml # Voids 1 2 # Bowel Movements 2 Laboratory Tests 06/10/18 05:50: White Blood Count 16.0H, Red Blood Count 3.94L, Hemoglobin 10.6L, Hematocrit 31.6L, Mean Corpuscular Volume 80, Mean Corpuscular Hemoglobin 26.8L, Mean Corpuscular Hemoglobin Concent 33.4, Red Cell Distribution Width 11.8, Platelet Count 327, Mean Platelet Volume 8.3, Neutrophils (%) (Auto) 79.9H, Lymphocytes ( %) (Auto) 9.3L, Monocytes (%) (Auto) 9.7, Eosinophils (%) (Auto) 0.3, Basophils (%) (Auto) 0.9, Sodium Level 142, Potassium Level 2.7*L, Chloride Level 102, Carbon Dioxide Level 31, Anion Gap 9, Blood Urea Nitrogen 11, Creatinine 0.7, Estimat Glomerular Filtration Rate > 60, Glucose Level 111H, Calcium Level 8.5 Height (Feet): 5 Height (Inches): 3.00 Weight (Pounds): 173 General Appearance: no apparent distress, alert EENT: PERRL/EOMI, normal ENT inspection, TMs normal, pharynx normal Neck: non-tender, normal alignment, supple, normal inspection Cardiovascular: normal peripheral pulses, normal rate, regular rhythm Respiratory/Chest: chest wall non-tender, lungs clear, normal breath sounds, no respiratory distress, no accessory muscle use Abdomen: normal bowel sounds, non tender, soft, no organomegaly, no mass Extremities: normal range of motion, non-tender, normal inspection, no calf tenderness 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
[2018-06-10] MEDS: Guaifenesin/DM 10ml syrup ORAL PRN ×3 (06:56→22:09)
[2018-06-10 08:00] VITALS: BP 120/59
[2018-06-10] MEDS: Oseltamivir 75mg cap ORAL SCH ×2 (10:08→17:14)
[2018-06-10] MEDS: Metoprolol 25mg tab ORAL SCH ×2 (10:09→22:09)
[2018-06-10] MEDS: GlipiZIDE 5mg tab ORAL SCH (10:09)
[2018-06-10] MEDS: Insulin NPH SUBQ SCH ×2 (10:12→22:13)
[2018-06-10 12:47] VITALS: BP 133/70
[2018-06-10 16:00] VITALS: BP 152/85
[2018-06-10 20:00] VITALS: BP 149/77
--- NOTE | 2018-06-10 21:52 | Infectious Diseases Prog Note ---
Subjective Allergies: Coded Allergies: No Known Allergies (Unverified , 06/06/18) Objective Vital Signs Last 24 Hour Vital Signs Date Time Temp Pulse Resp B/P (MAP) Pulse Ox O2 Delivery O2 Flow Rate FiO2 06/10/18 20:00 99.0 113 20 149/77 (101) 96 06/10/18 16:00 100 06/10/18 16:00 99.1 101 20 152/85 (107) 98 98 06/10/18 12:53 94 06/10/18 12:51 79 06/10/18 12:47 97.7 97 20 133/70 (91) 96 97 06/10/18 10:09 106 120/59 06/10/18 09:30 Room Air 06/10/18 08:00 97.5 106 20 120/59 (79) 95 06/10/18 07:53 125 06/10/18 04:00 113 06/10/18 04:00 100.1 133 22 141/77 (98) 93 06/10/18 00:00 99.6 103 20 141/70 (93) 98 06/10/18 00:00 116 Height (Feet): 5 Height (Inches): 3.00 Weight (Pounds): 173 Microbiology Date/Time Source Procedure Growth Status 06/08/18 09:00 Blood Blood Culture - Preliminary NO GROWTH AFTER 24 HOURS Resulted 06/08/18 08:45 Blood Blood Culture - Preliminary Gram Negative Bacillus 1 Resulted 06/09/18 02:15 Stool Clostridium difficile Toxin Assay - Final Complete Laboratory Tests Test 06/10/18 05:50 White Blood Count 16.0 K/UL (4.8-10.8) H Red Blood Count 3.94 M/UL (4.20-5.40) L Hemoglobin 10.6 G/DL (12.0-16.0) L Hematocrit 31.6 % (37.0-47.0) L Mean Corpuscular Volume 80 FL (80-99) Mean Corpuscular Hemoglobin 26.8 PG (27.0-31.0) L Mean Corpuscular Hemoglobin Concent 33.4 G/DL (32.0-36.0) Red Cell Distribution Width 11.8 % (11.6-14.8) Platelet Count 327 K/UL (150-450) Mean Platelet Volume 8.3 FL (6.5-10.1) Neutrophils (%) (Auto) 79.9 % (45.0-75.0) H Lymphocytes (%) (Auto) 9.3 % (20.0-45.0) L Monocytes (%) (Auto) 9.7 % (1.0-10.0) Eosinophils (%) (Auto) 0.3 % (0.0-3.0) Basophils (%) (Auto) 0.9 % (0.0-2.0) Sodium Level 142 MMOL/L (136-145) Potassium Level 2.7 MMOL/L (3.5-5.1) *L Chloride Level 102 MMOL/L (98-107) Carbon Dioxide Level 31 MMOL/L (21-32) Anion Gap 9 mmol/L (5-15) Blood Urea Nitrogen 11 mg/dL (7-18) Creatinine 0.7 MG/DL (0.55-1.30) Estimat Glomerular Filtration Rate > 60 mL/min (>60) Glucose Level 111 MG/DL (74-106) H Calcium Level 8.5 MG/DL (8.5-10.1) Magnesium Level 1.6 MG/DL (1.8-2.4) L Current Medications Medications (Trade) Dose Ordered Sig/Fernanda Route PRN Reason Start Time Stop Time Status Last Admin Dose Admin Acetaminophen (Tylenol) 650 mg Q8H PRN ORAL fever 06/06/18 18:16 07/06/18 18:14 06/08/18 05:43 Dextrose (Dextrose 50%) 25 ml Q30M PRN IV Hypoglycemia 06/07/18 11:30 07/07/18 11:29 Dextrose (Dextrose 50%) 50 ml Q30M PRN IV Hypoglycemia 06/07/18 11:30 07/07/18 11:29 Glipizide (Glucotrol) 10 mg DAILY ORAL 06/07/18 09:00 07/07/18 08:59 06/10/18 10:09 Guaifenesin/ Dextromethorphan (Robitussin DM Syrup) 10 ml Q4H PRN ORAL For Cough 06/08/18 22:30 07/08/18 22:29 06/10/18 12:21 Heparin Sodium (Porcine) (Heparin 5000 units/ml) 5,000 units EVERY 8 HOURS SUBQ 06/06/18 22:00 07/06/18 21:59 06/10/18 14:43 Insulin Aspart (NovoLOG) BEFORE MEALS AND HS SUBQ 06/06/18 21:00 07/06/18 20:59 06/10/18 17:17 Insulin Human NPH (Humulin N) 15 units DAILY SUBQ 06/07/18 13:00 07/07/18 12:59 06/10/18 10:12 Insulin Human NPH (Humulin N) 30 units BEDTIME SUBQ 06/07/18 23:00 07/07/18 22:59 06/09/18 21:32 Levofloxacin 150 ml @ 100 mls/hr Q24H IVPB 06/09/18 09:00 06/16/18 08:59 06/10/18 10:10 Levothyroxine Sodium (Synthroid) 25 mcg Q24H ORAL 06/07/18 06:30 07/07/18 06:29 06/10/18 06:20 Metoprolol Tartrate (Lopressor) 25 mg Q12HR ORAL 06/06/18 21:00 07/06/18 20:59 06/10/18 10:09 Morphine Sulfate (Morphine Sulfate) 2 mg Q6H PRN IVP For Pain 06/06/18 18:15 06/13/18 18:14 Ondansetron HCl (Zofran) 4 mg Q6H PRN IVP Nausea & Vomiting 06/09/18 08:00 07/09/18 07:59 06/10/18 14:40 Oseltamivir Phosphate (Tamiflu) 75 mg TWICE A DAY ORAL 06/07/18 09:00 06/12/18 08:59 06/10/18 17:14 Potassium Chloride (K-Dur) 40 meq TWICE A DAY ORAL 06/10/18 09:00 07/10/18 08:59 06/10/18 17:14 Sodium Chloride 1,000 ml @ 125 mls/hr Q8H IV 06/06/18 18:58 07/06/18 18:57 06/10/18 19:26 Ollie Miguel MD Jun 10, 2018 21:52
--- NOTE | 2018-06-10 23:08 | Infectious Diseases Prog Note ---
Assessment/Plan Assessment/Plan ASSESSMENT: The patient is a 57-year-old female with multiple medical problems, who has: Fever. Leukocytosis. Influenza A positive. Urinary tract infection (Klebsiella pneumoniae, rule out probable urinary obstruction). Bacteremia due to urinary tract infection Elevated alkaline phosphatase and hyperbilirubinemia US no evid of urinary obstruction/cholangitis Anemia Hyperlipidemia. Hypertension. Diabetes. PLAN: continue the patient on Tamiflu day # 3 /5, continue the patient on Levaquin day # 2 ( may change to Merrem if WBC does not improve in AM) 06/09 SP Zosyn day #2 Monitor repeat blood cultures Monitor CBC Monitor BMP. Monitor liver function tests CT of A/P ( if WBC does not improve in AM) Subjective Constitutional: Denies: no symptoms, fever, chills, fatigue, anorexia, drenching sweats, other Allergies: Coded Allergies: No Known Allergies (Unverified , 06/06/18) Objective Vital Signs Last 24 Hour Vital Signs Date Time Temp Pulse Resp B/P (MAP) Pulse Ox O2 Delivery O2 Flow Rate FiO2 06/10/18 22:09 113 149/77 06/10/18 21:00 Room Air 06/10/18 20:00 99.0 113 20 149/77 (101) 96 06/10/18 16:00 100 06/10/18 16:00 99.1 101 20 152/85 (107) 98 98 06/10/18 12:53 94 06/10/18 12:51 79 06/10/18 12:47 97.7 97 20 133/70 (91) 96 97 06/10/18 10:09 106 120/59 06/10/18 09:30 Room Air 06/10/18 08:00 97.5 106 20 120/59 (79) 95 06/10/18 07:53 125 06/10/18 04:00 113 06/10/18 04:00 100.1 133 22 141/77 (98) 93 06/10/18 00:00 99.6 103 20 141/70 (93) 98 06/10/18 00:00 116 Height (Feet): 5 Height (Inches): 3.00 Weight (Pounds): 173 HEENT: anicteric Respiratory/Chest: no accessory muscle use Cardiovascular: regularly irregular Abdomen: no organomegaly Microbiology Date/Time Source Procedure Growth Status 06/08/18 09:00 Blood Blood Culture - Preliminary NO GROWTH AFTER 24 HOURS Resulted 06/08/18 08:45 Blood Blood Culture - Preliminary Gram Negative Bacillus 1 Resulted 06/09/18 02:15 Stool Clostridium difficile Toxin Assay - Final Complete Laboratory Tests Test 06/10/18 05:50 White Blood Count 16.0 K/UL (4.8-10.8) H Red Blood Count 3.94 M/UL (4.20-5.40) L Hemoglobin 10.6 G/DL (12.0-16.0) L Hematocrit 31.6 % (37.0-47.0) L Mean Corpuscular Volume 80 FL (80-99) Mean Corpuscular Hemoglobin 26.8 PG (27.0-31.0) L Mean Corpuscular Hemoglobin Concent 33.4 G/DL (32.0-36.0) Red Cell Distribution Width 11.8 % (11.6-14.8) Platelet Count 327 K/UL (150-450) Mean Platelet Volume 8.3 FL (6.5-10.1) Neutrophils (%) (Auto) 79.9 % (45.0-75.0) H Lymphocytes (%) (Auto) 9.3 % (20.0-45.0) L Monocytes (%) (Auto) 9.7 % (1.0-10.0) Eosinophils (%) (Auto) 0.3 % (0.0-3.0) Basophils (%) (Auto) 0.9 % (0.0-2.0) Sodium Level 142 MMOL/L (136-145) Potassium Level 2.7 MMOL/L (3.5-5.1) *L Chloride Level 102 MMOL/L (98-107) Carbon Dioxide Level 31 MMOL/L (21-32) Anion Gap 9 mmol/L (5-15) Blood Urea Nitrogen 11 mg/dL (7-18) Creatinine 0.7 MG/DL (0.55-1.30) Estimat Glomerular Filtration Rate > 60 mL/min (>60) Glucose Level 111 MG/DL (74-106) H Calcium Level 8.5 MG/DL (8.5-10.1) Magnesium Level 1.6 MG/DL (1.8-2.4) L Current Medications Medications (Trade) Dose Ordered Sig/Fernanda Route PRN Reason Start Time Stop Time Status Last Admin Dose Admin Acetaminophen (Tylenol) 650 mg Q8H PRN ORAL fever 06/06/18 18:16 07/06/18 18:14 06/08/18 05:43 Dextrose (Dextrose 50%) 25 ml Q30M PRN IV Hypoglycemia 06/07/18 11:30 07/07/18 11:29 Dextrose (Dextrose 50%) 50 ml Q30M PRN IV Hypoglycemia 06/07/18 11:30 07/07/18 11:29 Glipizide (Glucotrol) 10 mg DAILY ORAL 06/07/18 09:00 07/07/18 08:59 06/10/18 10:09 Guaifenesin/ Dextromethorphan (Robitussin DM Syrup) 10 ml Q4H PRN ORAL For Cough 06/08/18 22:30 07/08/18 22:29 06/10/18 22:09 Heparin Sodium (Porcine) (Heparin 5000 units/ml) 5,000 units EVERY 8 HOURS SUBQ 06/06/18 22:00 07/06/18 21:59 06/10/18 22:11 Insulin Aspart (NovoLOG) BEFORE MEALS AND HS SUBQ 06/06/18 21:00 07/06/18 20:59 06/10/18 22:12 Insulin Human NPH (Humulin N) 15 units DAILY SUBQ 06/07/18 13:00 07/07/18 12:59 06/10/18 10:12 Insulin Human NPH (Humulin N) 30 units BEDTIME SUBQ 06/07/18 23:00 07/07/18 22:59 06/10/18 22:13 Levofloxacin 150 ml @ 100 mls/hr Q24H IVPB 06/09/18 09:00 06/16/18 08:59 06/10/18 10:10 Levothyroxine Sodium (Synthroid) 25 mcg Q24H ORAL 06/07/18 06:30 07/07/18 06:29 06/10/18 06:20 Metoprolol Tartrate (Lopressor) 25 mg Q12HR ORAL 06/06/18 21:00 07/06/18 20:59 06/10/18 22:09 Morphine Sulfate (Morphine Sulfate) 2 mg Q6H PRN IVP For Pain 06/06/18 18:15 06/13/18 18:14 Ondansetron HCl (Zofran) 4 mg Q6H PRN IVP Nausea & Vomiting 06/09/18 08:00 07/09/18 07:59 06/10/18 14:40 Oseltamivir Phosphate (Tamiflu) 75 mg TWICE A DAY ORAL 06/07/18 09:00 06/12/18 08:59 06/10/18 17:14 Potassium Chloride (K-Dur) 40 meq TWICE A DAY ORAL 06/10/18 09:00 07/10/18 08:59 06/10/18 17:14 Sodium Chloride 1,000 ml @ 125 mls/hr Q8H IV 06/06/18 18:58 07/06/18 18:57 06/10/18 19:26 Ollie Miguel MD Jun 10, 2018 23:07
[2018-06-11] VITALS: BP 136/92
[2018-06-11 04:00] VITALS: BP 127/63
[2018-06-11] MEDS: Levothyroxine 25mcg tab ORAL SCH (06:30)
[2018-06-11] MEDS: Heparin 5000 units/ml inj SUBQ SCH ×3 (06:33→22:28)
[2018-06-11] MEDS: NovoLOG Insulin Flexpen SUBQ SCH ×4 (06:33→22:27)
[2018-06-11 08:00] VITALS: BP 127/84
[2018-06-11 08:01] LABS: BASOPHILS % (AUTO) 0.8 % (0.0-2.0); HEMATOCRIT 30.2 % (37.0-47.0); HEMOGLOBIN 10.3 G/DL (12.0-16.0); MEAN CORPUSCULAR VOLUME 81 FL (80-99); NEUTROPHILS % (AUTO) 78.3 % (45.0-75.0); PLATELET COUNT 343 K/UL (150-450); RED BLOOD COUNT 3.74 M/UL (4.20-5.40); RED CELL DISTRIBUTION WIDTH 12.4 % (11.6-14.8); WHITE BLOOD COUNT 16.5 K/UL (4.8-10.8)
[2018-06-11 08:08] LABS: ANION GAP 9 mmol/L (5-15); BLOOD UREA NITROGEN 12 mg/dL (7-18); CALCIUM 8.6 MG/DL (8.5-10.1); CARBON DIOXIDE 27 MMOL/L (21-32); CHLORIDE 105 MMOL/L (98-107); CREATININE 0.6 MG/DL (0.55-1.30); SODIUM 141 MMOL/L (136-145)
[2018-06-11] MEDS: GlipiZIDE 5mg tab ORAL SCH (09:55)
[2018-06-11] MEDS: Metoprolol 25mg tab ORAL SCH ×2 (09:56→22:24)
[2018-06-11] MEDS: Oseltamivir 75mg cap ORAL SCH ×2 (09:56→17:29)
[2018-06-11] MEDS: Insulin NPH SUBQ SCH ×2 (10:02→22:26)
[2018-06-11] MEDS ORDERED: Isovue-300 100ml vial INJ PRN (10:15)
--- NOTE | 2018-06-11 10:17 | Infectious Diseases Prog Note ---
Assessment/Plan Assessment/Plan ASSESSMENT: The patient is a 57-year-old female with multiple medical problems, who has: Fever. Leukocytosis, persists Influenza A positive. Urinary tract infection (Klebsiella pneumoniae) US : no Evid of urinary obstruction Bacteremia ( Kleb) due to urinary tract infection Elevated alkaline phosphatase and hyperbilirubinemia US no evid of urinary obstruction/cholangitis Anemia Hyperlipidemia. Hypertension. Diabetes. PLAN: continue the patient on Tamiflu day # 5 /5, continue the patient on Merrem d# 1 and DC Levaquin day # 3 06/09 SP Zosyn day #2 Monitor repeat blood cultures Monitor CBC Monitor BMP. Monitor liver function tests CT of A/P ro Abscess Subjective Allergies: Coded Allergies: No Known Allergies (Unverified , 06/06/18) Subjective no dysuria comfortable Objective Vital Signs Last 24 Hour Vital Signs Date Time Temp Pulse Resp B/P (MAP) Pulse Ox O2 Delivery O2 Flow Rate FiO2 06/11/18 09:56 110 127/84 06/11/18 08:00 97.7 110 18 127/84 (98) 97 06/11/18 04:00 97.6 100 20 127/63 (84) 96 06/11/18 04:00 111 06/11/18 00:00 103 06/11/18 00:00 97.7 98 20 136/92 (107) 96 06/10/18 22:09 113 149/77 06/10/18 21:00 Room Air 06/10/18 20:00 99.0 113 20 149/77 (101) 96 06/10/18 20:00 111 06/10/18 16:00 100 06/10/18 16:00 99.1 101 20 152/85 (107) 98 98 06/10/18 12:53 94 06/10/18 12:51 79 06/10/18 12:47 97.7 97 20 133/70 (91) 96 97 Height (Feet): 5 Height (Inches): 3.00 Weight (Pounds): 173 HEENT: mucous membranes moist Respiratory/Chest: no accessory muscle use Cardiovascular: regular rhythm Abdomen: no organomegaly Microbiology Date/Time Source Procedure Growth Status 06/09/18 08:50 Blood Blood Culture - Preliminary NO GROWTH AFTER 24 HOURS Resulted 06/09/18 08:50 Blood Blood Culture - Preliminary NO GROWTH AFTER 24 HOURS Resulted 06/09/18 02:15 Stool Clostridium difficile Toxin Assay - Final Complete Laboratory Tests Test 06/11/18 07:05 White Blood Count 16.5 K/UL (4.8-10.8) H Red Blood Count 3.74 M/UL (4.20-5.40) L Hemoglobin 10.3 G/DL (12.0-16.0) L Hematocrit 30.2 % (37.0-47.0) L Mean Corpuscular Volume 81 FL (80-99) Mean Corpuscular Hemoglobin 27.5 PG (27.0-31.0) Mean Corpuscular Hemoglobin Concent 34.0 G/DL (32.0-36.0) Red Cell Distribution Width 12.4 % (11.6-14.8) Platelet Count 343 K/UL (150-450) Mean Platelet Volume 8.3 FL (6.5-10.1) Neutrophils (%) (Auto) 78.3 % (45.0-75.0) H Lymphocytes (%) (Auto) 13.0 % (20.0-45.0) L Monocytes (%) (Auto) 7.0 % (1.0-10.0) Eosinophils (%) (Auto) 1.0 % (0.0-3.0) Basophils (%) (Auto) 0.8 % (0.0-2.0) Sodium Level 141 MMOL/L (136-145) Potassium Level 4.0 MMOL/L (3.5-5.1) Chloride Level 105 MMOL/L (98-107) Carbon Dioxide Level 27 MMOL/L (21-32) Anion Gap 9 mmol/L (5-15) Blood Urea Nitrogen 12 mg/dL (7-18) Creatinine 0.6 MG/DL (0.55-1.30) Estimat Glomerular Filtration Rate > 60 mL/min (>60) Glucose Level 186 MG/DL (74-106) H Calcium Level 8.6 MG/DL (8.5-10.1) Current Medications Medications (Trade) Dose Ordered Sig/Fernanda Route PRN Reason Start Time Stop Time Status Last Admin Dose Admin Acetaminophen (Tylenol) 650 mg Q8H PRN ORAL fever 06/06/18 18:16 07/06/18 18:14 06/08/18 05:43 Dextrose (Dextrose 50%) 25 ml Q30M PRN IV Hypoglycemia 06/07/18 11:30 07/07/18 11:29 Dextrose (Dextrose 50%) 50 ml Q30M PRN IV Hypoglycemia 06/07/18 11:30 07/07/18 11:29 Glipizide (Glucotrol) 10 mg DAILY ORAL 06/07/18 09:00 07/07/18 08:59 06/11/18 09:55 Guaifenesin/ Dextromethorphan (Robitussin DM Syrup) 10 ml Q4H PRN ORAL For Cough 06/08/18 22:30 07/08/18 22:29 06/10/18 22:09 Heparin Sodium (Porcine) (Heparin 5000 units/ml) 5,000 units EVERY 8 HOURS SUBQ 06/06/18 22:00 07/06/18 21:59 06/11/18 06:33 Insulin Aspart (NovoLOG) BEFORE MEALS AND HS SUBQ 06/06/18 21:00 07/06/18 20:59 06/11/18 06:33 Insulin Human NPH (Humulin N) 15 units DAILY SUBQ 06/07/18 13:00 07/07/18 12:59 06/11/18 10:02 Insulin Human NPH (Humulin N) 30 units BEDTIME SUBQ 06/07/18 23:00 07/07/18 22:59 06/10/18 22:13 Levofloxacin 150 ml @ 100 mls/hr Q24H IVPB 06/09/18 09:00 06/16/18 08:59 06/11/18 09:55 Levothyroxine Sodium (Synthroid) 25 mcg Q24H ORAL 06/07/18 06:30 07/07/18 06:29 06/11/18 06:30 Metoprolol Tartrate (Lopressor) 25 mg Q12HR ORAL 06/06/18 21:00 07/06/18 20:59 06/11/18 09:56 Morphine Sulfate (Morphine Sulfate) 2 mg Q6H PRN IVP For Pain 06/06/18 18:15 06/13/18 18:14 Ondansetron HCl (Zofran) 4 mg Q6H PRN IVP Nausea & Vomiting 06/09/18 08:00 07/09/18 07:59 06/10/18 14:40 Oseltamivir Phosphate (Tamiflu) 75 mg TWICE A DAY ORAL 06/07/18 09:00 06/12/18 08:59 06/11/18 09:56 Potassium Chloride (K-Dur) 40 meq TWICE A DAY ORAL 06/10/18 09:00 07/10/18 08:59 06/11/18 09:55 Sodium Chloride 1,000 ml @ 125 mls/hr Q8H IV 06/06/18 18:58 07/06/18 18:57 06/11/18 02:05 Ollie Miguel MD Jun 11, 2018 10:17
[2018-06-11 10:37] LABS: ALANINE AMINOTRANSFERASE 58 U/L (12-78); ALBUMIN 1.7 G/DL (3.4-5.0); ALKALINE PHOSPHATASE 535 U/L (46-116); ASPARTATE AMINO TRANSFERASE 52 U/L (15-37); BILIRUBIN,DIRECT 0.5 MG/DL (0.0-0.3)
--- NOTE | 2018-06-11 10:52 | General Progress Note ---
Assessment/Plan Problem List: (1) Bacteremia due to Klebsiella pneumoniae Assessment & Plan: abx changed to merrem per ID recs as wbc still elevated repeat bcx showing similar growth appreciate id recs ngtd on most recent bcx ICD Codes: R78.81 - Bacteremia SNOMED: 746933445, 824752619921 (2) UTI due to Klebsiella species Assessment & Plan: cont abx ID consulted ICD Codes: N39.0 - Urinary tract infection, site not specified; B96.1 - Klebsiella pneumoniae [K. pneumoniae] as the cause of diseases classified elsewhere SNOMED: 972191054784035 (3) Sepsis Assessment & Plan: stable repeat bcx + due to klebsiella and influenza A sens to lvq ID consulted, appreciate recs ICD Codes: A41.9 - Sepsis, unspecified organism SNOMED: 01716016 Qualifiers: Qualified Codes: A41.9 - Sepsis, unspecified organism (4) Complicated UTI (urinary tract infection) Assessment & Plan: due to above cont above management ICD Codes: N39.0 - Urinary tract infection, site not specified SNOMED: 02868939 (5) Influenza Assessment & Plan: tamiflu started fluids for hydration management per above ICD Codes: J11.1 - Influenza due to unidentified influenza virus with other respiratory manifestations SNOMED: 6577793 (6) Lactic acid blood increased Assessment & Plan: elevated on admit 3.6 resolved due to sepsis ICD Codes: R79.89 - Other specified abnormal findings of blood chemistry SNOMED: 3286803 (7) Essential hypertension Assessment & Plan: resume home meds takes metoprolol 25mg bid tele ICD Codes: I10 - Essential (primary) hypertension SNOMED: 39501647 (8) Diabetes Assessment & Plan: iss accuchecks on metformin and insulin at home ppx: heparin, scd diet: ccd5 Please call at any time for any questions Thank you, Romero Lemos MD ICD Codes: E11.9 - Type 2 diabetes mellitus without complications SNOMED: 07846745 Qualifiers: Qualified Codes: E10.9 - Type 1 diabetes mellitus without complications (9) Hypomagnesemia Assessment & Plan: replenish monitor ICD Codes: E83.42 - Hypomagnesemia SNOMED: 697078954 (10) Hypokalemia Assessment & Plan: k 2.7 replenish k and mg ICD Codes: E87.6 - Hypokalemia SNOMED: 11498676 Status: stable Assessment/Plan I have spent over 40 mins in this patient's care and over 37 mins in face to face time including coordinating care. Subjective Date patient seen: Jun 11, 2018 Time patient seen: 07:42 Constitutional: Denies: no symptoms, chills, diaphoresis, fever, malaise, weakness, other HEENT: Denies: no symptoms, eye pain, blurred vision, tearing, double vision, ear pain, ear discharge, nose pain, nose congestion, throat pain, throat swelling, mouth pain, mouth swelling, other Cardiovascular: Denies: no symptoms, chest pain, edema, irregular heart rate, lightheadedness, palpitations, syncope, other Respiratory: Denies: no symptoms, cough, orthopnea, shortness of breath, SOB with excertion, SOB at rest, sputum, stridor, wheezing, other Gastrointestinal/Abdominal: Denies: no symptoms, abdomen distended, abdominal pain, black stools, tarry stools, blood in stool, constipated, diarrhea, difficulty swallowing, nausea, poor appetite, poor fluid intake, rectal bleeding , vomiting, other Genitourinary: Denies: no symptoms, burning, discharge, frequency, flank pain, hematuria, incontinence, pain, urgency, other Neurologic/Psychiatric: Denies: no symptoms, anxiety, depressed, emotional problems, headache, numbness, paresthesia, pre-existing deficit, seizure, tingling, tremors, weakness, other Endocrine: Denies: no symptoms, excessive sweating, flushing, intolerance to cold, intolerance to heat, increased hunger, increased thirst, increased urine, unexplained weight gain, unexplained weight loss, other Hematologic/Lymphatic: Denies: no symptoms, anemia, easy bleeding, easy bruising, other Allergies: Coded Allergies: No Known Allergies (Unverified , 06/06/18) Subjective f/u sepsis, bacteremia denies any complaints no acute events overnight abx changed as wbc still elevated, ID following along Objective Last 24 Hour Vital Signs Date Time Temp Pulse Resp B/P (MAP) Pulse Ox O2 Delivery O2 Flow Rate FiO2 06/11/18 09:56 110 127/84 06/11/18 08:00 97.7 110 18 127/84 (98) 97 06/11/18 04:00 97.6 100 20 127/63 (84) 96 06/11/18 04:00 111 06/11/18 00:00 103 06/11/18 00:00 97.7 98 20 136/92 (107) 96 06/10/18 22:09 113 149/77 06/10/18 21:00 Room Air 06/10/18 20:00 99.0 113 20 149/77 (101) 96 06/10/18 20:00 111 06/10/18 16:00 100 06/10/18 16:00 99.1 101 20 152/85 (107) 98 98 06/10/18 12:53 94 06/10/18 12:51 79 06/10/18 12:47 97.7 97 20 133/70 (91) 96 97 Intake and Output 06/10/18 06/11/18 19:00 07:00 Intake Total 700 ml Output Total 800 ml 2000 ml Balance -100 ml -2000 ml Intake Oral 700 ml Output Urine Total 800 ml 2000 ml # Bowel Movements 1 Laboratory Tests 06/11/18 06:55: Total Bilirubin 1.0, Direct Bilirubin 0.5H, Aspartate Amino Transf (AST/SGOT) 52H, Alanine Aminotransferase (ALT/SGPT) 58, Alkaline Phosphatase 535H, Total Protein 7.1, Albumin 1.7L 06/11/18 07:05: White Blood Count 16.5H, Red Blood Count 3.74L, Hemoglobin 10.3L, Hematocrit 30.2L, Mean Corpuscular Volume 81, Mean Corpuscular Hemoglobin 27.5, Mean Corpuscular Hemoglobin Concent 34.0, Red Cell Distribution Width 12.4, Platelet Count 343, Mean Platelet Volume 8.3, Neutrophils (%) (Auto) 78.3H, Lymphocytes ( %) (Auto) 13.0L, Monocytes (%) (Auto) 7.0, Eosinophils (%) (Auto) 1.0, Basophils (%) (Auto) 0.8, Neutrophils % (Manual) [Pending], Lymphocytes % ( Manual) [Pending], Platelet Estimate [Pending], Platelet Morphology [Pending], Sodium Level 141, Potassium Level 4.0, Chloride Level 105, Carbon Dioxide Level 27, Anion Gap 9, Blood Urea Nitrogen 12, Creatinine 0.6, Estimat Glomerular Filtration Rate > 60, Glucose Level 186H, Calcium Level 8.6 Height (Feet): 5 Height (Inches): 3.00 Weight (Pounds): 173 General Appearance: no apparent distress, alert EENT: PERRL/EOMI, normal ENT inspection, TMs normal, pharynx normal Neck: non-tender, normal alignment, supple Cardiovascular: normal peripheral pulses, normal rate, regular rhythm Respiratory/Chest: chest wall non-tender, lungs clear, normal breath sounds, no respiratory distress, no accessory muscle use Abdomen: normal bowel sounds, non tender, soft, no organomegaly, no mass Extremities: normal range of motion, non-tender, normal inspection 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
[2018-06-11 12:00] VITALS: BP 127/59
[2018-06-11] MEDS: Meropenem 1 GM in NS 55 ML IVPB SCH ×2 (14:39→22:30)
--- NOTE | 2018-06-11 15:58 | Diagnostic Imaging Report ---
Clinical Indication: Abdominal pain and fever, leukocytosis Technique: Patient ingested oral contrast IV administration nonionic contrast. Venous phase spiral acquisition obtained through the abdomen and pelvis. Multiplanar reconstructions were generated. Total dose length product 904.48 mGycm. CTDIvol(s) 18.4 mGy. Dose reduction achieved using automated exposure control Comparison: none Findings: The right kidney is abnormal in appearance. It is somewhat enlarged, with indistinct margins, multiple focal areas of decreased attenuation, as well as more discrete cysts and subcentimeter low-attenuation lesions. There is diffusely somewhat hypoattenuating compared to the right kidney. No calculi. No hydronephrosis or hydroureter. There is suggestion of slight enhancement of the renal pelvic urothelium. The left kidney is unremarkable except for minimal nonspecific appearing perinephric fat stranding. There is a Roberts catheter present within the bladder. The bladder is nondistended. Gas within the bladder likely relates to the Roberts catheterization. The liver is mildly hypoattenuating. No discrete abnormality demonstrated. The gallbladder, bile ducts, pancreas, spleen, left adrenal are unremarkable. The right adrenal demonstrates a 3.3 cm mass which demonstrates nonspecific attenuation. No pelvic mass or adenopathy. There is evidence of prior supracervical hysterectomy. Trace free fluid is seen within the pelvis. No evidence of diverticulosis or diverticulitis. The appendix is normal. No small bowel distention. Contrast is seen throughout the entirety of the small bowel and throughout the entirety of the colon. There is slight distal esophageal wall thickening. The stomach and duodenum are unremarkable. The included lung bases are clear. The bones demonstrate minimal degenerative changes of the lumbosacral junction and of the bilateral hips. Impression: Enlarged slightly hypoattenuating and heterogeneous right kidney, with indistinct margins and slight indistinctness of the perinephric fat. Findings are suggestive of nephritis. Other infiltrating processes, including infiltrating neoplasm also possible the less likely. There are multiple cysts. Other more ill-defined nodular hypoattenuating areas likely represent small cysts, but are asymmetric compared to the contralateral side and could represent areas of inflammation. Correlation with clinical and laboratory findings is recommended. Slight enhancement of the renal pelvic urothelium could indicate a component of pyelitis as well Mild fatty hepatic change 3.3 cm right adrenal mass. Recommend further evaluation with noncontrast CT. If not clearly an adenoma on noncontrast CT, this should be followed with adrenal protocol contrast CT Mild distal esophageal wall thickening, could indicate esophagitis Other findings as noted, including Roberts catheter, evidence of prior supracervical hysterectomy, degenerative lumbar spondylosis and bilateral hip disease The CT scanner at [facility] is accredited by the [employer] and the scans are performed using protocols designed to limit radiation exposure to as low as reasonably achievable to attain images of sufficient resolution adequate for diagnostic evaluation.
[2018-06-11 16:00] VITALS: BP 115/64
[2018-06-11 20:00] VITALS: BP 141/79
[2018-06-12] VITALS: BP 129/80
[2018-06-12 04:00] VITALS: BP 143/76
[2018-06-12] MEDS: Meropenem 1 GM in NS 55 ML IVPB SCH ×3 (06:00→21:56)
[2018-06-12] MEDS: NovoLOG Insulin Flexpen SUBQ SCH ×4 (06:30→22:03)
[2018-06-12] MEDS: Levothyroxine 25mcg tab ORAL SCH (07:10)
[2018-06-12] MEDS: Heparin 5000 units/ml inj SUBQ SCH ×3 (07:12→21:56)
[2018-06-12 08:00] VITALS: BP 141/76
[2018-06-12] MEDS: GlipiZIDE 5mg tab ORAL SCH (09:26)
[2018-06-12] MEDS: Metoprolol 25mg tab ORAL SCH ×2 (09:27→21:55)
[2018-06-12] MEDS: Insulin NPH SUBQ SCH (09:28)
[2018-06-12 09:50] LABS: ANION GAP 13 mmol/L (5-15); BLOOD UREA NITROGEN 12 mg/dL (7-18); CALCIUM 8.5 MG/DL (8.5-10.1); CARBON DIOXIDE 22 MMOL/L (21-32); CHLORIDE 105 MMOL/L (98-107); CREATININE 0.4 MG/DL (0.55-1.30); POTASSIUM 5.1 MMOL/L (3.5-5.1); SODIUM 140 MMOL/L (136-145)
[2018-06-12 09:59] LABS: HEMATOCRIT 31.9 % (37.0-47.0); HEMOGLOBIN 10.8 G/DL (12.0-16.0); MEAN CORPUSCULAR VOLUME 82 FL (80-99); PLATELET COUNT 354 K/UL (150-450); RED BLOOD COUNT 3.87 M/UL (4.20-5.40); RED CELL DISTRIBUTION WIDTH 12.7 % (11.6-14.8)
[2018-06-12 12:00] VITALS: BP 110/60
--- NOTE | 2018-06-12 14:40 | General Progress Note ---
Assessment/Plan Problem List: (1) Bacteremia due to Klebsiella pneumoniae Assessment & Plan: abx changed to merrem per ID recs as wbc still elevated at 15 cont to monitor cont abx appreciate ID recs repeat bcx ngtd ICD Codes: R78.81 - Bacteremia SNOMED: 830451043, 593538327667 (2) UTI due to Klebsiella species Assessment & Plan: cont abx ID consulted ICD Codes: N39.0 - Urinary tract infection, site not specified; B96.1 - Klebsiella pneumoniae [K. pneumoniae] as the cause of diseases classified elsewhere SNOMED: 186974178247304 (3) Sepsis Assessment & Plan: stable repeat bcx + due to klebsiella and influenza A sens to lvq ID consulted, appreciate recs ICD Codes: A41.9 - Sepsis, unspecified organism SNOMED: 34598634 Qualifiers: Qualified Codes: A41.9 - Sepsis, unspecified organism (4) Complicated UTI (urinary tract infection) Assessment & Plan: due to above cont above management ICD Codes: N39.0 - Urinary tract infection, site not specified SNOMED: 86238692 (5) Influenza Assessment & Plan: tamiflu started fluids for hydration management per above ICD Codes: J11.1 - Influenza due to unidentified influenza virus with other respiratory manifestations SNOMED: 2748166 (6) Lactic acid blood increased Assessment & Plan: elevated on admit 3.6 resolved due to sepsis ICD Codes: R79.89 - Other specified abnormal findings of blood chemistry SNOMED: 8479066 (7) Essential hypertension Assessment & Plan: resume home meds takes metoprolol 25mg bid tele ICD Codes: I10 - Essential (primary) hypertension SNOMED: 97898794 (8) Diabetes Assessment & Plan: iss accuchecks on metformin and insulin at home ppx: heparin, scd diet: ccd5 Please call at any time for any questions Thank you, Romero Lemos MD ICD Codes: E11.9 - Type 2 diabetes mellitus without complications SNOMED: 42253847 Qualifiers: Qualified Codes: E10.9 - Type 1 diabetes mellitus without complications (9) Hypomagnesemia Assessment & Plan: resolved ICD Codes: E83.42 - Hypomagnesemia SNOMED: 468870194 (10) Hypokalemia Assessment & Plan: resolved no K a bit high at 5.1 will monitor now ICD Codes: E87.6 - Hypokalemia SNOMED: 14696282 (11) Weakness Assessment & Plan: therapy to eval before dc ICD Codes: R53.1 - Weakness SNOMED: 85542809 Status: stable, progressing Assessment/Plan diet: diabetic diet ppx: heparin, scd I have spent over 41 mins in this patient's care and over 37 mins in face to face time including coordinating care. Subjective Allergies: Coded Allergies: No Known Allergies (Unverified , 06/06/18) Subjective f/u sepsis, bacteremia denies any complaints no acute events overnight wbc still elevated, abx were changed denies fevers/chills 12 point ros negative except for the above Objective Last 24 Hour Vital Signs Date Time Temp Pulse Resp B/P (MAP) Pulse Ox O2 Delivery O2 Flow Rate FiO2 06/12/18 12:00 98.1 103 20 110/60 (77) 97 06/12/18 12:00 93 06/12/18 09:27 103 141/76 06/12/18 09:00 Room Air 06/12/18 08:00 98.0 103 20 141/76 (97) 96 06/12/18 08:00 104 06/12/18 04:00 98.4 105 20 143/76 (98) 94 06/12/18 03:21 96 06/12/18 00:00 98.2 57 20 129/80 (96) 96 06/11/18 23:27 101 06/11/18 22:24 111 141/79 06/11/18 21:00 Room Air 06/11/18 20:00 99.2 111 20 141/79 (99) 97 06/11/18 19:03 112 06/11/18 16:00 97.3 106 18 115/64 (81) 96 06/11/18 16:00 100 Intake and Output 06/11/18 06/12/18 19:00 07:00 Intake Total 2185 ml Output Total 2700 ml 3000 ml Balance -515 ml -3000 ml Intake Oral 480 ml IV Total 1705 ml Output Urine Total 2700 ml 3000 ml # Bowel Movements 5 Laboratory Tests 06/12/18 08:30: White Blood Count 18.0H, Red Blood Count 3.87L, Hemoglobin 10.8L, Hematocrit 31.9L, Mean Corpuscular Volume 82, Mean Corpuscular Hemoglobin 28.0, Mean Corpuscular Hemoglobin Concent 34.0, Red Cell Distribution Width 12.7, Platelet Count 354, Mean Platelet Volume 7.7, Neutrophils (%) (Auto) , Lymphocytes (%) ( Auto) , Monocytes (%) (Auto) , Eosinophils (%) (Auto) , Basophils (%) (Auto) , Differential Total Cells Counted 100, Neutrophils % (Manual) 76H, Lymphocytes % (Manual) 10L, Monocytes % (Manual) 10, Eosinophils % (Manual) 1, Basophils % ( Manual) 1, Metamyelocytes % 1H, Myelocytes % 1H, Band Neutrophils 0, Platelet Estimate Adequate, Platelet Morphology Normal, Hypochromasia 1+, Anisocytosis 1+ , Sodium Level 140, Potassium Level 5.1, Chloride Level 105, Carbon Dioxide Level 22, Anion Gap 13, Blood Urea Nitrogen 12, Creatinine 0.4L, Estimat Glomerular Filtration Rate > 60, Glucose Level 169H, Calcium Level 8.5 Height (Feet): 5 Height (Inches): 3.00 Weight (Pounds): 173 General Appearance: WD/WN, no apparent distress, alert EENT: PERRL/EOMI, normal ENT inspection, TMs normal, pharynx normal Neck: non-tender, normal alignment, supple, normal inspection Cardiovascular: normal peripheral pulses, normal rate, regular rhythm Respiratory/Chest: chest wall non-tender, lungs clear, normal breath sounds, no respiratory distress, no accessory muscle use Abdomen: normal bowel sounds, non tender, soft, no organomegaly, no mass Extremities: normal range of motion, non-tender, normal inspection, no calf tenderness 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
[2018-06-12 16:00] VITALS: BP 109/56
--- NOTE | 2018-06-12 17:50 | Infectious Diseases Prog Note ---
Assessment/Plan Assessment/Plan ASSESSMENT: The patient is a 57-year-old female with multiple medical problems, who has: Fever, sp Leukocytosis, increased 06/11 CT of A/P : ? Nephritis , no Abscess PSmaer : no blast Influenza A positive, SP Rx Urinary tract infection (Klebsiella pneumoniae US : no Evid of urinary obstruction Bacteremia ( Kleb) due to urinary tract infection Elevated alkaline phosphatase and hyperbilirubinemia US no evid of urinary obstruction/cholangitis Anemia Hyperlipidemia. Hypertension. Diabetes. PLAN: continue the patient on Merrem d# 2 / 7 06/12 SP Tamiflu day # 5 /5 06/11 SP Levaquin day # 3 06/09 SP Zosyn day #2 Monitor repeat blood cultures Monitor CBC Monitor BMP. Monitor liver function tests Rec Hem cons for persistent leukocytosis Subjective Allergies: Coded Allergies: No Known Allergies (Unverified , 06/06/18) Subjective no dysuria no new complain Objective Vital Signs Last 24 Hour Vital Signs Date Time Temp Pulse Resp B/P (MAP) Pulse Ox O2 Delivery O2 Flow Rate FiO2 06/12/18 12:00 98.1 103 20 110/60 (77) 97 06/12/18 12:00 93 06/12/18 09:27 103 141/76 06/12/18 09:00 Room Air 06/12/18 08:00 98.0 103 20 141/76 (97) 96 06/12/18 08:00 104 06/12/18 04:00 98.4 105 20 143/76 (98) 94 06/12/18 03:21 96 06/12/18 00:00 98.2 57 20 129/80 (96) 96 06/11/18 23:27 101 06/11/18 22:24 111 141/79 06/11/18 21:00 Room Air 06/11/18 20:00 99.2 111 20 141/79 (99) 97 06/11/18 19:03 112 Height (Feet): 5 Height (Inches): 3.00 Weight (Pounds): 173 HEENT: anicteric Respiratory/Chest: no respiratory distress Cardiovascular: regular rhythm Abdomen: no organomegaly Laboratory Tests Test 06/12/18 08:30 White Blood Count 18.0 K/UL (4.8-10.8) H Red Blood Count 3.87 M/UL (4.20-5.40) L Hemoglobin 10.8 G/DL (12.0-16.0) L Hematocrit 31.9 % (37.0-47.0) L Mean Corpuscular Volume 82 FL (80-99) Mean Corpuscular Hemoglobin 28.0 PG (27.0-31.0) Mean Corpuscular Hemoglobin Concent 34.0 G/DL (32.0-36.0) Red Cell Distribution Width 12.7 % (11.6-14.8) Platelet Count 354 K/UL (150-450) Mean Platelet Volume 7.7 FL (6.5-10.1) Neutrophils (%) (Auto) % (45.0-75.0) Lymphocytes (%) (Auto) % (20.0-45.0) Monocytes (%) (Auto) % (1.0-10.0) Eosinophils (%) (Auto) % (0.0-3.0) Basophils (%) (Auto) % (0.0-2.0) Differential Total Cells Counted 100 Neutrophils % (Manual) 76 % (45-75) H Lymphocytes % (Manual) 10 % (20-45) L Monocytes % (Manual) 10 % (1-10) Eosinophils % (Manual) 1 % (0-3) Basophils % (Manual) 1 % (0-2) Metamyelocytes % 1 % (0-0) H Myelocytes % 1 % (0-0) H Band Neutrophils 0 % (0-8) Platelet Estimate Adequate Platelet Morphology Normal Hypochromasia 1+ Anisocytosis 1+ Sodium Level 140 MMOL/L (136-145) Potassium Level 5.1 MMOL/L (3.5-5.1) Chloride Level 105 MMOL/L (98-107) Carbon Dioxide Level 22 MMOL/L (21-32) Anion Gap 13 mmol/L (5-15) Blood Urea Nitrogen 12 mg/dL (7-18) Creatinine 0.4 MG/DL (0.55-1.30) L Estimat Glomerular Filtration Rate > 60 mL/min (>60) Glucose Level 169 MG/DL (74-106) H Calcium Level 8.5 MG/DL (8.5-10.1) Current Medications Medications (Trade) Dose Ordered Sig/Fernanda Route PRN Reason Start Time Stop Time Status Last Admin Dose Admin Acetaminophen (Tylenol) 650 mg Q8H PRN ORAL fever 06/06/18 18:16 07/06/18 18:14 06/08/18 05:43 Barium Sulfate (Readi-Cat 2) 450 ml NOW PRN ORAL Radiology Procedure 06/11/18 10:15 06/13/18 10:10 06/11/18 12:09 Dextrose (Dextrose 50%) 25 ml Q30M PRN IV Hypoglycemia 06/07/18 11:30 07/07/18 11:29 Dextrose (Dextrose 50%) 50 ml Q30M PRN IV Hypoglycemia 06/07/18 11:30 07/07/18 11:29 Glipizide (Glucotrol) 10 mg DAILY ORAL 06/07/18 09:00 07/07/18 08:59 06/12/18 09:26 Guaifenesin/ Dextromethorphan (Robitussin DM Syrup) 10 ml Q4H PRN ORAL For Cough 06/08/18 22:30 07/08/18 22:29 06/10/18 22:09 Heparin Sodium (Porcine) (Heparin 5000 units/ml) 5,000 units EVERY 8 HOURS SUBQ 06/06/18 22:00 07/06/18 21:59 06/12/18 14:24 Insulin Aspart (NovoLOG) BEFORE MEALS AND HS SUBQ 06/06/18 21:00 07/06/18 20:59 06/12/18 11:49 Insulin Human NPH (Humulin N) 15 units DAILY SUBQ 06/07/18 13:00 07/07/18 12:59 06/12/18 09:28 Insulin Human NPH (Humulin N) 30 units BEDTIME SUBQ 06/07/18 23:00 07/07/18 22:59 06/11/18 22:26 Iopamidol (Isovue-300 100ml) 100 ml NOW PRN INJ Radiology Procedure 06/11/18 10:15 06/13/18 10:14 Levothyroxine Sodium (Synthroid) 25 mcg Q24H ORAL 06/07/18 06:30 07/07/18 06:29 06/12/18 07:10 Meropenem 1 gm/ Sodium Chloride 55 ml @ 110 mls/hr Q8HR IVPB 06/11/18 14:00 06/16/18 13:59 06/12/18 14:16 Metoprolol Tartrate (Lopressor) 25 mg Q12HR ORAL 06/06/18 21:00 07/06/18 20:59 06/12/18 09:27 Morphine Sulfate (Morphine Sulfate) 2 mg Q6H PRN IVP For Pain 06/06/18 18:15 06/13/18 18:14 Ondansetron HCl (Zofran) 4 mg Q6H PRN IVP Nausea & Vomiting 06/09/18 08:00 07/09/18 07:59 06/11/18 12:05 Sodium Chloride 1,000 ml @ 125 mls/hr Q8H IV 06/06/18 18:58 07/06/18 18:57 06/12/18 11:41 Ollie Miguel MD Jun 12, 2018 17:50
[2018-06-12 20:00] VITALS: BP 116/52
[2018-06-13] VITALS: BP 113/71
[2018-06-13] MEDS: Insulin NPH SUBQ SCH ×3 (00:40→21:23)
[2018-06-13] MEDS: Guaifenesin/DM 10ml syrup ORAL PRN (00:40)
[2018-06-13 04:00] VITALS: BP 143/80
[2018-06-13] MEDS: Levothyroxine 25mcg tab ORAL SCH (06:27)
[2018-06-13] MEDS: Meropenem 1 GM in NS 55 ML IVPB SCH ×3 (06:27→21:21)
[2018-06-13] MEDS: NovoLOG Insulin Flexpen SUBQ SCH ×4 (06:29→21:23)
[2018-06-13] MEDS: Heparin 5000 units/ml inj SUBQ SCH ×3 (06:29→21:24)
[2018-06-13 07:28] LABS: BASOPHILS % (AUTO) 1.1 % (0.0-2.0); EOSINOPHILS % (AUTO) 1.5 % (0.0-3.0); HEMATOCRIT 30.8 % (37.0-47.0); HEMOGLOBIN 10.3 G/DL (12.0-16.0); LYMPHOCYTES % (AUTO) 13.7 % (20.0-45.0); MEAN CORPUSCULAR VOLUME 82 FL (80-99); MONOCYTES % (AUTO) 6.1 % (1.0-10.0); NEUTROPHILS % (AUTO) 77.7 % (45.0-75.0); PLATELET COUNT 425 K/UL (150-450); RED BLOOD COUNT 3.76 M/UL (4.20-5.40); RED CELL DISTRIBUTION WIDTH 12.5 % (11.6-14.8); WHITE BLOOD COUNT 14.1 K/UL (4.8-10.8)
--- NOTE | 2018-06-13 07:32 | General Progress Note ---
Assessment/Plan Problem List: (1) Bacteremia due to Klebsiella pneumoniae Assessment & Plan: abx changed to merrem per ID pending AM labs today last wbc 18 cont to monitor cont abx appreciate ID recs repeat bcx ngtd ICD Codes: R78.81 - Bacteremia SNOMED: 310304951, [id number] (2) UTI due to Klebsiella species Assessment & Plan: cont abx ID consulted ICD Codes: N39.0 - Urinary tract infection, site not specified; B96.1 - Klebsiella pneumoniae [K. pneumoniae] as the cause of diseases classified elsewhere SNOMED: 451438580541029 (3) Sepsis Assessment & Plan: stable repeat bcx + due to klebsiella and influenza A sens to lvq ID consulted, appreciate recs ICD Codes: A41.9 - Sepsis, unspecified organism SNOMED: 09094296 Qualifiers: Qualified Codes: A41.9 - Sepsis, unspecified organism (4) Complicated UTI (urinary tract infection) Assessment & Plan: due to above cont above management ICD Codes: N39.0 - Urinary tract infection, site not specified SNOMED: 26224384 (5) Influenza Assessment & Plan: tamiflu started fluids for hydration management per above ICD Codes: J11.1 - Influenza due to unidentified influenza virus with other respiratory manifestations SNOMED: 5892849 (6) Lactic acid blood increased Assessment & Plan: elevated on admit 3.6 resolved due to sepsis ICD Codes: R79.89 - Other specified abnormal findings of blood chemistry SNOMED: 6428780 (7) Essential hypertension Assessment & Plan: resume home meds takes metoprolol 25mg bid tele ICD Codes: I10 - Essential (primary) hypertension SNOMED: 32811047 (8) Diabetes Assessment & Plan: iss accuchecks on metformin and insulin at home ppx: heparin, scd diet: ccd5 Please call at any time for any questions Thank you, Romero Lemos MD ICD Codes: E11.9 - Type 2 diabetes mellitus without complications SNOMED: 54796206 Qualifiers: Qualified Codes: E10.9 - Type 1 diabetes mellitus without complications (9) Hypomagnesemia Assessment & Plan: resolved ICD Codes: E83.42 - Hypomagnesemia SNOMED: 828711131 (10) Hypokalemia Assessment & Plan: resolved will monitor now ICD Codes: E87.6 - Hypokalemia SNOMED: 64885085 (11) Weakness Assessment & Plan: therapy to eval before dc ICD Codes: R53.1 - Weakness SNOMED: 95347924 Assessment/Plan diet: diabetic diet ppx: heparin, scd I have spent over 43 mins in this patient's care and over 37 mins in face to face time including coordinating care. Subjective Allergies: Coded Allergies: No Known Allergies (Unverified , 06/06/18) Subjective f/u sepsis, bacteremia denies any complaints no acute events overnight pending AM labs still denies fevers/chills 12 point ros negative except for the above Objective Last 24 Hour Vital Signs Date Time Temp Pulse Resp B/P (MAP) Pulse Ox O2 Delivery O2 Flow Rate FiO2 06/13/18 04:00 95 06/13/18 04:00 97.2 95 18 143/80 (101) 97 06/13/18 00:00 98.5 102 16 113/71 (85) 96 06/13/18 00:00 102 06/12/18 21:55 104 116/52 06/12/18 21:00 Room Air 06/12/18 20:00 98.0 100 18 116/52 (73) 99 06/12/18 20:00 104 06/12/18 16:00 97 06/12/18 16:00 98.4 106 20 109/56 (73) 97 06/12/18 12:00 98.1 103 20 110/60 (77) 97 06/12/18 12:00 93 06/12/18 09:27 103 141/76 06/12/18 09:00 Room Air 06/12/18 08:00 98.0 103 20 141/76 (97) 96 06/12/18 08:00 104 Intake and Output 06/12/18 06/13/18 19:00 07:00 Intake Total 725 ml 1125 ml Output Total 900 ml 2000 ml Balance -175 ml -875 ml Intake Oral 600 ml 250 ml IV Total 125 ml 875 ml Output Urine Total 900 ml 2000 ml # Bowel Movements 1 3 Laboratory Tests 06/12/18 08:30: White Blood Count 18.0H, Red Blood Count 3.87L, Hemoglobin 10.8L, Hematocrit 31.9L, Mean Corpuscular Volume 82, Mean Corpuscular Hemoglobin 28.0, Mean Corpuscular Hemoglobin Concent 34.0, Red Cell Distribution Width 12.7, Platelet Count 354, Mean Platelet Volume 7.7, Neutrophils (%) (Auto) , Lymphocytes (%) ( Auto) , Monocytes (%) (Auto) , Eosinophils (%) (Auto) , Basophils (%) (Auto) , Differential Total Cells Counted 100, Neutrophils % (Manual) 76H, Lymphocytes % (Manual) 10L, Monocytes % (Manual) 10, Eosinophils % (Manual) 1, Basophils % ( Manual) 1, Metamyelocytes % 1H, Myelocytes % 1H, Band Neutrophils 0, Platelet Estimate Adequate, Platelet Morphology Normal, Hypochromasia 1+, Anisocytosis 1+ , Sodium Level 140, Potassium Level 5.1, Chloride Level 105, Carbon Dioxide Level 22, Anion Gap 13, Blood Urea Nitrogen 12, Creatinine 0.4L, Estimat Glomerular Filtration Rate > 60, Glucose Level 169H, Calcium Level 8.5 06/13/18 06:50: White Blood Count [Pending], Red Blood Count [Pending], Hemoglobin [Pending], Hematocrit [Pending], Mean Corpuscular Volume [Pending], Mean Corpuscular Hemoglobin [Pending], Mean Corpuscular Hemoglobin Concent [Pending], Red Cell Distribution Width [Pending], Platelet Count [Pending], Mean Platelet Volume [ Pending], Neutrophils (%) (Auto) [Pending], Lymphocytes (%) (Auto) [Pending], Monocytes (%) (Auto) [Pending], Eosinophils (%) (Auto) [Pending], Basophils (%) (Auto) [Pending], Sodium Level [Pending], Potassium Level [Pending], Chloride Level [Pending], Carbon Dioxide Level [Pending], Blood Urea Nitrogen [Pending], Creatinine [Pending], Estimat Glomerular Filtration Rate [Pending], Glucose Level [Pending], Calcium Level [Pending] Height (Feet): 5 Height (Inches): 3.00 Weight (Pounds): 166 General Appearance: no apparent distress, alert, confused EENT: PERRL/EOMI, normal ENT inspection, TMs normal, pharynx normal Neck: non-tender, normal alignment, supple, normal inspection Cardiovascular: normal peripheral pulses, normal rate, regular rhythm Respiratory/Chest: chest wall non-tender, lungs clear, normal breath sounds, no respiratory distress, no accessory muscle use Abdomen: normal bowel sounds, non tender, soft, no organomegaly, no mass Extremities: normal range of motion, non-tender, normal inspection, no calf tenderness 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
[2018-06-13 07:43] LABS: ANION GAP 7 mmol/L (5-15); BLOOD UREA NITROGEN 13 mg/dL (7-18); CALCIUM 8.7 MG/DL (8.5-10.1); CARBON DIOXIDE 27 MMOL/L (21-32); CHLORIDE 106 MMOL/L (98-107); CREATININE 0.7 MG/DL (0.55-1.30); POTASSIUM 3.8 MMOL/L (3.5-5.1); SODIUM 140 MMOL/L (136-145)
[2018-06-13 08:00] VITALS: BP 111/67
[2018-06-13] MEDS: Metoprolol 25mg tab ORAL SCH ×2 (09:12→21:21)
[2018-06-13] MEDS: GlipiZIDE 5mg tab ORAL SCH (09:13)
[2018-06-13 12:00] VITALS: BP 117/57
[2018-06-13] MEDS ORDERED: NS 275ml ONE (15:34)
[2018-06-13] MEDS ORDERED: Tubing IV Secondary IV ONE (15:34)
--- NOTE | 2018-06-13 15:58 | Infectious Diseases Prog Note ---
Assessment/Plan Assessment/Plan ASSESSMENT: The patient is a 57-year-old female with multiple medical problems, who has: Fever, sp Leukocytosis, improved 06/11 CT of A/P : ? Nephritis , no Abscess PSmaer : no blast Influenza A positive, SP Rx Urinary tract infection (Klebsiella pneumoniae, ? AmpC Resistance , did not respond well to Zosyn and Levaquin ) US : no Evid of urinary obstruction Bacteremia ( Kleb) due to urinary tract infection Elevated alkaline phosphatase and hyperbilirubinemia US no evid of urinary obstruction/cholangitis Anemia Hyperlipidemia. Hypertension. Diabetes. PLAN: Continue the patient on Merrem d# 3 / , if WBC cont to improve suggest to DC on IV Invanz (? AmpC Resistance , did not respond well to Zosyn and Levaquin ) 06/12 SP Tamiflu day # 5 /06/11 SP Levaquin day # 3 06/09 SP Zosyn day #2 Monitor blood cultures Monitor CBC Monitor BMP. Monitor liver function tests Rec Hem cons if leukocytosis for persists Subjective Allergies: Coded Allergies: No Known Allergies (Unverified , 06/06/18) Subjective no dysuria flank pain resolved Objective Vital Signs Last 24 Hour Vital Signs Date Time Temp Pulse Resp B/P (MAP) Pulse Ox O2 Delivery O2 Flow Rate FiO2 06/13/18 12:00 83 06/13/18 12:00 97.8 83 18 117/57 (77) 96 06/13/18 09:12 109 111/67 06/13/18 09:00 Room Air 06/13/18 08:00 98.3 109 18 111/67 (82) 97 06/13/18 08:00 104 06/13/18 04:00 95 06/13/18 04:00 97.2 95 18 143/80 (101) 97 06/13/18 00:00 98.5 102 16 113/71 (85) 96 06/13/18 00:00 102 06/12/18 21:55 104 116/52 06/12/18 21:00 Room Air 06/12/18 20:00 98.0 100 18 116/52 (73) 99 06/12/18 20:00 104 06/12/18 16:00 97 06/12/18 16:00 98.4 106 20 109/56 (73) 97 Height (Feet): 5 Height (Inches): 3.00 Weight (Pounds): 166 Respiratory/Chest: no respiratory distress Cardiovascular: regular rhythm Abdomen: no organomegaly Microbiology Date/Time Source Procedure Growth Status 06/11/18 07:05 Blood Blood Culture - Preliminary NO GROWTH AFTER 24 HOURS Resulted 06/11/18 06:55 Blood Blood Culture - Preliminary NO GROWTH AFTER 24 HOURS Resulted Laboratory Tests Test 06/13/18 06:50 White Blood Count 14.1 K/UL (4.8-10.8) H Red Blood Count 3.76 M/UL (4.20-5.40) L Hemoglobin 10.3 G/DL (12.0-16.0) L Hematocrit 30.8 % (37.0-47.0) L Mean Corpuscular Volume 82 FL (80-99) Mean Corpuscular Hemoglobin 27.3 PG (27.0-31.0) Mean Corpuscular Hemoglobin Concent 33.3 G/DL (32.0-36.0) Red Cell Distribution Width 12.5 % (11.6-14.8) Platelet Count 425 K/UL (150-450) Mean Platelet Volume 7.2 FL (6.5-10.1) Neutrophils (%) (Auto) 77.7 % (45.0-75.0) H Lymphocytes (%) (Auto) 13.7 % (20.0-45.0) L Monocytes (%) (Auto) 6.1 % (1.0-10.0) Eosinophils (%) (Auto) 1.5 % (0.0-3.0) Basophils (%) (Auto) 1.1 % (0.0-2.0) Sodium Level 140 MMOL/L (136-145) Potassium Level 3.8 MMOL/L (3.5-5.1) Chloride Level 106 MMOL/L (98-107) Carbon Dioxide Level 27 MMOL/L (21-32) Anion Gap 7 mmol/L (5-15) Blood Urea Nitrogen 13 mg/dL (7-18) Creatinine 0.7 MG/DL (0.55-1.30) # Estimat Glomerular Filtration Rate > 60 mL/min (>60) Glucose Level 186 MG/DL (74-106) H Calcium Level 8.7 MG/DL (8.5-10.1) Current Medications Medications (Trade) Dose Ordered Sig/Fernanda Route PRN Reason Start Time Stop Time Status Last Admin Dose Admin Acetaminophen (Tylenol) 650 mg Q8H PRN ORAL fever 06/06/18 18:16 07/06/18 18:14 06/08/18 05:43 Dextrose (Dextrose 50%) 25 ml Q30M PRN IV Hypoglycemia 06/07/18 11:30 07/07/18 11:29 Dextrose (Dextrose 50%) 50 ml Q30M PRN IV Hypoglycemia 06/07/18 11:30 07/07/18 11:29 Glipizide (Glucotrol) 10 mg DAILY ORAL 06/07/18 09:00 07/07/18 08:59 06/13/18 09:13 Guaifenesin/ Dextromethorphan (Robitussin DM Syrup) 10 ml Q4H PRN ORAL For Cough 06/08/18 22:30 07/08/18 22:29 06/13/18 00:40 Heparin Sodium (Porcine) (Heparin 5000 units/ml) 5,000 units EVERY 8 HOURS SUBQ 06/06/18 22:00 07/06/18 21:59 06/13/18 14:33 Insulin Aspart (NovoLOG) BEFORE MEALS AND HS SUBQ 06/06/18 21:00 07/06/18 20:59 06/13/18 12:40 Insulin Human NPH (Humulin N) 15 units DAILY SUBQ 06/07/18 13:00 07/07/18 12:59 06/13/18 09:14 Insulin Human NPH (Humulin N) 30 units BEDTIME SUBQ 06/07/18 23:00 07/07/18 22:59 06/13/18 00:40 Levothyroxine Sodium (Synthroid) 25 mcg Q24H ORAL 06/07/18 06:30 07/07/18 06:29 06/13/18 06:27 Meropenem 1 gm/ Sodium Chloride 55 ml @ 110 mls/hr Q8HR IVPB 06/11/18 14:00 06/16/18 13:59 06/13/18 14:33 Metoprolol Tartrate (Lopressor) 25 mg Q12HR ORAL 06/06/18 21:00 07/06/18 20:59 06/13/18 09:12 Morphine Sulfate (Morphine Sulfate) 2 mg Q6H PRN IVP For Pain 06/06/18 18:15 06/13/18 18:14 Ondansetron HCl (Zofran) 4 mg Q6H PRN IVP Nausea & Vomiting 06/09/18 08:00 07/09/18 07:59 06/11/18 12:05 Sodium Chloride 1,000 ml @ 125 mls/hr Q8H IV 06/06/18 18:58 07/06/18 18:57 06/13/18 06:47 Ollie Miguel MD Jun 13, 2018 15:58
[2018-06-13 16:00] VITALS: BP 128/69
[2018-06-13 20:00] VITALS: BP 125/66
[2018-06-14] VITALS: BP 125/70
[2018-06-14 04:00] VITALS: BP 141/76
[2018-06-14] MEDS: Levothyroxine 25mcg tab ORAL SCH (05:36)
[2018-06-14] MEDS: Meropenem 1 GM in NS 55 ML IVPB SCH ×3 (05:36→21:39)
[2018-06-14] MEDS: Heparin 5000 units/ml inj SUBQ SCH ×3 (05:39→21:41)
[2018-06-14] MEDS: NovoLOG Insulin Flexpen SUBQ SCH ×4 (06:30→20:44)
[2018-06-14 07:15] LABS: BASOPHILS % (AUTO) 0.9 % (0.0-2.0); HEMATOCRIT 29.4 % (37.0-47.0); HEMOGLOBIN 9.7 G/DL (12.0-16.0); MEAN CORPUSCULAR VOLUME 81 FL (80-99); MONOCYTES % (AUTO) 6.5 % (1.0-10.0); NEUTROPHILS % (AUTO) 79.7 % (45.0-75.0); PLATELET COUNT 408 K/UL (150-450); RED BLOOD COUNT 3.61 M/UL (4.20-5.40)
[2018-06-14 08:00] VITALS: BP 123/72
--- NOTE | 2018-06-14 08:23 | General Progress Note ---
Assessment/Plan Problem List: (1) Bacteremia due to Klebsiella pneumoniae Assessment & Plan: abx changed to merrem per ID wbc still elevated cont to monitor cont abx appreciate ID recs repeat bcx ngtd ICD Codes: R78.81 - Bacteremia SNOMED: 508125646, [id number] (2) UTI due to Klebsiella species Assessment & Plan: cont abx ID consulted ICD Codes: N39.0 - Urinary tract infection, site not specified; B96.1 - Klebsiella pneumoniae [K. pneumoniae] as the cause of diseases classified elsewhere SNOMED: 281108831302602 (3) Sepsis Assessment & Plan: stable last set of bcx ngtd due to klebsiella and influenza A sens to lvq ID consulted, appreciate recs ICD Codes: A41.9 - Sepsis, unspecified organism SNOMED: 35561654 Qualifiers: Qualified Codes: A41.9 - Sepsis, unspecified organism (4) Complicated UTI (urinary tract infection) Assessment & Plan: due to above cont above management ICD Codes: N39.0 - Urinary tract infection, site not specified SNOMED: 01007386 (5) Influenza Assessment & Plan: tamiflu started fluids for hydration management per above ICD Codes: J11.1 - Influenza due to unidentified influenza virus with other respiratory manifestations SNOMED: 8363027 (6) Lactic acid blood increased Assessment & Plan: elevated on admit 3.6 resolved due to sepsis ICD Codes: R79.89 - Other specified abnormal findings of blood chemistry SNOMED: 2346561 (7) Essential hypertension Assessment & Plan: resume home meds takes metoprolol 25mg bid tele ICD Codes: I10 - Essential (primary) hypertension SNOMED: 23156437 (8) Diabetes Assessment & Plan: iss accuchecks on metformin and insulin at home ppx: heparin, scd diet: ccd5 Please call at any time for any questions Thank you, Romero Lemos MD ICD Codes: E11.9 - Type 2 diabetes mellitus without complications SNOMED: 83299104 Qualifiers: Qualified Codes: E10.9 - Type 1 diabetes mellitus without complications (9) Hypomagnesemia Assessment & Plan: resolved ICD Codes: E83.42 - Hypomagnesemia SNOMED: 628086354 (10) Hypokalemia Assessment & Plan: resolved will monitor now ICD Codes: E87.6 - Hypokalemia SNOMED: 65070519 (11) Weakness Assessment & Plan: therapy to eval before dc ICD Codes: R53.1 - Weakness SNOMED: 09986179 Status: stable Assessment/Plan diet: diabetic diet ppx: heparin, scd I have spent over 42 mins in this patient's care and over 37 mins in face to face time including coordinating care. Subjective Allergies: Coded Allergies: No Known Allergies (Unverified , 06/06/18) Subjective f/u sepsis, bacteremia denies any complaints no acute events overnight wbc still elevated denies fevers/chills 12 point ros negative except for the above Objective Last 24 Hour Vital Signs Date Time Temp Pulse Resp B/P (MAP) Pulse Ox O2 Delivery O2 Flow Rate FiO2 06/14/18 04:00 97.9 109 20 141/76 (97) 97 06/14/18 04:00 104 06/14/18 00:00 91 06/14/18 00:00 97.5 96 20 125/70 (88) 96 06/13/18 21:21 108 125/66 06/13/18 21:00 Room Air 06/13/18 20:00 98.0 108 20 125/66 (85) 99 06/13/18 20:00 100 06/13/18 16:12 90 06/13/18 16:00 98.3 83 18 128/69 (88) 97 06/13/18 12:00 83 06/13/18 12:00 97.8 83 18 117/57 (77) 96 06/13/18 09:12 109 111/67 06/13/18 09:00 Room Air Intake and Output 06/13/18 06/14/18 19:00 07:00 Intake Total 600 ml Output Total 1800 ml Balance 600 ml -1800 ml Intake Oral 600 ml Output Urine Total 1800 ml # Voids 3 # Bowel Movements 2 2 Laboratory Tests 06/14/18 06:41: White Blood Count 14.0H, Red Blood Count 3.61L, Hemoglobin 9.7L, Hematocrit 29.4L, Mean Corpuscular Volume 81, Mean Corpuscular Hemoglobin 26.9L, Mean Corpuscular Hemoglobin Concent 33.0, Red Cell Distribution Width 12.0, Platelet Count 408, Mean Platelet Volume 6.8, Neutrophils (%) (Auto) 79.7H, Lymphocytes ( %) (Auto) 12.0L, Monocytes (%) (Auto) 6.5, Eosinophils (%) (Auto) 1.0, Basophils (%) (Auto) 0.9 Height (Feet): 5 Height (Inches): 3.00 Weight (Pounds): 166 General Appearance: no apparent distress, alert EENT: PERRL/EOMI, normal ENT inspection, pharynx normal Neck: non-tender, normal alignment, supple, normal inspection Cardiovascular: normal peripheral pulses, normal rate, regular rhythm Respiratory/Chest: chest wall non-tender, lungs clear, normal breath sounds, no respiratory distress, no accessory muscle use Abdomen: normal bowel sounds, non tender, soft, no organomegaly, no mass Extremities: normal range of motion, non-tender, normal inspection 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
[2018-06-14] MEDS ORDERED: Tubing IV Secondary IV ONE (08:47)
[2018-06-14] MEDS ORDERED: NS 275ml ONE (08:47)
--- NOTE | 2018-06-14 09:22 | Infectious Diseases Prog Note ---
Assessment/Plan Assessment/Plan ASSESSMENT: The patient is a 57-year-old female with multiple medical problems, who has: Fever, sp Leukocytosis, improving 06/11 CT of A/P : ? Nephritis , no Abscess PSmaer : no blast Influenza A positive, SP Rx Urinary tract infection (Klebsiella pneumoniae, ? AmpC Resistance , did not respond well to Zosyn and Levaquin ) US : no Evid of urinary obstruction Bacteremia ( Kleb) due to urinary tract infection -repeat Bcx N TD Elevated alkaline phosphatase and hyperbilirubinemia US no evid of urinary obstruction/cholangitis Anemia Hyperlipidemia. Hypertension. Diabetes. PLAN: Continue the patient on Merrem d# / , if WBC cont to improve suggest to DC on IV Invanz (? AmpC Resistance , did not respond well to Zosyn and Levaquin ) -06/12 SP Tamiflu day # 5 /5 -06/11 SP Levaquin day # 3 -06/09 SP Zosyn day #2 Monitor blood cultures Monitor CBC Monitor BMP. Monitor liver function tests Rec Hem cons if leukocytosis for persists Subjective Allergies: Coded Allergies: No Known Allergies (Unverified , 06/06/18) Subjective afebrile leukocytosis improved repeat bcx NTD Objective Vital Signs Last 24 Hour Vital Signs Date Time Temp Pulse Resp B/P (MAP) Pulse Ox O2 Delivery O2 Flow Rate FiO2 06/14/18 08:00 97.7 103 19 123/72 (89) 96 06/14/18 04:00 97.9 109 20 141/76 (97) 97 06/14/18 04:00 104 06/14/18 00:00 91 06/14/18 00:00 97.5 96 20 125/70 (88) 96 06/13/18 21:21 108 125/66 06/13/18 21:00 Room Air 06/13/18 20:00 98.0 108 20 125/66 (85) 99 06/13/18 20:00 100 06/13/18 16:12 90 06/13/18 16:00 98.3 83 18 128/69 (88) 97 06/13/18 12:00 83 06/13/18 12:00 97.8 83 18 117/57 (77) 96 Height (Feet): 5 Height (Inches): 3.00 Weight (Pounds): 166 Objective General Appearance: no apparent distress, alert EENT: PERRL/EOMI, normal ENT inspection, pharynx normal Neck: non-tender, normal alignment, supple, normal inspection Cardiovascular: normal peripheral pulses, normal rate, regular rhythm Respiratory/Chest: chest wall non-tender, lungs clear, normal breath sounds, no respiratory distress, no accessory muscle use Abdomen: normal bowel sounds, non tender, soft, no organomegaly, no mass Extremities: normal range of motion, non-tender, normal inspection 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, no motor/sensory deficits, alert, oriented x 3, responsive, normal mood/affect Skin: normal pigmentation, warm/dry Laboratory Tests Test 06/14/18 06:41 White Blood Count 14.0 K/UL (4.8-10.8) H Red Blood Count 3.61 M/UL (4.20-5.40) L Hemoglobin 9.7 G/DL (12.0-16.0) L Hematocrit 29.4 % (37.0-47.0) L Mean Corpuscular Volume 81 FL (80-99) Mean Corpuscular Hemoglobin 26.9 PG (27.0-31.0) L Mean Corpuscular Hemoglobin Concent 33.0 G/DL (32.0-36.0) Red Cell Distribution Width 12.0 % (11.6-14.8) Platelet Count 408 K/UL (150-450) Mean Platelet Volume 6.8 FL (6.5-10.1) Neutrophils (%) (Auto) 79.7 % (45.0-75.0) H Lymphocytes (%) (Auto) 12.0 % (20.0-45.0) L Monocytes (%) (Auto) 6.5 % (1.0-10.0) Eosinophils (%) (Auto) 1.0 % (0.0-3.0) Basophils (%) (Auto) 0.9 % (0.0-2.0) Current Medications Medications (Trade) Dose Ordered Sig/Fernanda Route PRN Reason Start Time Stop Time Status Last Admin Dose Admin Acetaminophen (Tylenol) 650 mg Q8H PRN ORAL fever 06/06/18 18:16 07/06/18 18:14 06/08/18 05:43 Dextrose (Dextrose 50%) 25 ml Q30M PRN IV Hypoglycemia 06/07/18 11:30 12/15/18 11:29 Dextrose (Dextrose 50%) 50 ml Q30M PRN IV Hypoglycemia 06/07/18 11:30 07/07/18 11:29 Glipizide (Glucotrol) 10 mg DAILY ORAL 06/07/18 09:00 07/07/18 08:59 06/13/18 09:13 Guaifenesin/ Dextromethorphan (Robitussin DM Syrup) 10 ml Q4H PRN ORAL For Cough 06/08/18 22:30 07/08/18 22:29 06/13/18 00:40 Heparin Sodium (Porcine) (Heparin 5000 units/ml) 5,000 units EVERY 8 HOURS SUBQ 06/06/18 22:00 07/06/18 21:59 06/14/18 05:39 Insulin Aspart (NovoLOG) BEFORE MEALS AND HS SUBQ 06/06/18 21:00 07/06/18 20:59 06/13/18 21:23 Insulin Human NPH (Humulin N) 15 units DAILY SUBQ 06/07/18 13:00 07/07/18 12:59 06/13/18 09:14 Insulin Human NPH (Humulin N) 30 units BEDTIME SUBQ 06/07/18 23:00 07/07/18 22:59 06/13/18 21:23 Levothyroxine Sodium (Synthroid) 25 mcg Q24H ORAL 06/07/18 06:30 07/07/18 06:29 06/14/18 05:36 Meropenem 1 gm/ Sodium Chloride 55 ml @ 110 mls/hr Q8HR IVPB 06/11/18 14:00 06/16/18 13:59 06/14/18 05:36 Metoprolol Tartrate (Lopressor) 25 mg Q12HR ORAL 06/06/18 21:00 07/06/18 20:59 06/13/18 21:21 Ondansetron HCl (Zofran) 4 mg Q6H PRN IVP Nausea & Vomiting 06/09/18 08:00 07/09/18 07:59 06/11/18 12:05 Sodium Chloride 1,000 ml @ 125 mls/hr Q8H IV 06/06/18 18:58 07/06/18 18:57 06/14/18 02:35 Gwen Ochoa M.D. Jun 14, 2018 09:22
[2018-06-14] MEDS: GlipiZIDE 5mg tab ORAL SCH (09:35)
[2018-06-14] MEDS: Metoprolol 25mg tab ORAL SCH ×2 (09:35→20:44)
[2018-06-14] MEDS: Insulin NPH SUBQ SCH ×2 (09:36→20:45)
[2018-06-14 12:00] VITALS: BP 104/40
[2018-06-14 16:00] VITALS: BP 117/79
[2018-06-14 20:00] VITALS: BP 125/66
[2018-06-15] VITALS (7 sets, daily range): BP systolic 100–146; BP diastolic 62–69
[2018-06-15] MEDS: Levothyroxine 25mcg tab ORAL SCH (06:17)
[2018-06-15] MEDS: Meropenem 1 GM in NS 55 ML IVPB SCH ×3 (06:17→21:05)
[2018-06-15] MEDS: Heparin 5000 units/ml inj SUBQ SCH ×3 (06:19→21:05)
[2018-06-15] MEDS: NovoLOG Insulin Flexpen SUBQ SCH ×4 (06:20→21:04)
[2018-06-15 06:37] LABS: BASOPHILS % (AUTO) 1.1 % (0.0-2.0); EOSINOPHILS % (AUTO) 1.8 % (0.0-3.0); HEMOGLOBIN 9.7 G/DL (12.0-16.0); LYMPHOCYTES % (AUTO) 17.5 % (20.0-45.0); MEAN CORPUSCULAR VOLUME 82 FL (80-99); MONOCYTES % (AUTO) 5.7 % (1.0-10.0); NEUTROPHILS % (AUTO) 73.9 % (45.0-75.0); PLATELET COUNT 377 K/UL (150-450); RED BLOOD COUNT 3.55 M/UL (4.20-5.40); RED CELL DISTRIBUTION WIDTH 12.1 % (11.6-14.8)
[2018-06-15 06:53] LABS: ANION GAP 9 mmol/L (5-15); BLOOD UREA NITROGEN 11 mg/dL (7-18); CALCIUM 8.7 MG/DL (8.5-10.1); CARBON DIOXIDE 26 MMOL/L (21-32); CHLORIDE 110 MMOL/L (98-107); CREATININE 0.5 MG/DL (0.55-1.30); POTASSIUM 3.6 MMOL/L (3.5-5.1); SODIUM 144 MMOL/L (136-145)
--- NOTE | 2018-06-15 07:52 | Infectious Diseases Prog Note ---
Assessment/Plan Assessment/Plan The patient is a 57-year-old female with multiple medical problems, who has: Fever, sp Leukocytosis, improving 06/11 CT of A/P : ? Nephritis , no Abscess PSmaer : no blast Influenza A positive, SP Rx Urinary tract infection (Klebsiella pneumoniae, ? AmpC Resistance , did not respond well to Zosyn and Levaquin ) US : no Evid of urinary obstruction Bacteremia ( Kleb) due to urinary tract infection -repeat Bcx N TD Elevated alkaline phosphatase and hyperbilirubinemia US no evid of urinary obstruction/cholangitis Anemia Hyperlipidemia. Hypertension. Diabetes. PLAN: Continue the patient on Merrem d# , if WBC cont to improve suggest to DC on IV Invanz (? AmpC Resistance , did not respond well to Zosyn and Levaquin ) -06/12 SP Tamiflu day # 5 /5 -06/11 SP Levaquin day # 3 -06/09 SP Zosyn day #2 Monitor blood cultures Monitor CBC Monitor BMP. Monitor liver function tests Rec Hem cons if leukocytosis for persists Subjective Allergies: Coded Allergies: No Known Allergies (Unverified , 06/06/18) Subjective Patient afebrile Leukocytosis finally resolved Objective Vital Signs Last 24 Hour Vital Signs Date Time Temp Pulse Resp B/P (MAP) Pulse Ox O2 Delivery O2 Flow Rate FiO2 06/15/18 04:00 98.1 83 18 135/62 (86) 97 06/15/18 04:00 83 06/15/18 00:00 84 06/15/18 00:00 98.0 79 18 138/65 (89) 98 06/14/18 21:00 Room Air 06/14/18 20:44 88 125/66 06/14/18 20:00 98.9 88 18 125/66 (85) 95 06/14/18 20:00 92 06/14/18 16:00 97.1 66 20 117/79 (92) 06/14/18 15:26 87 06/14/18 12:01 93 06/14/18 12:00 97.7 95 20 104/40 (61) 97 06/14/18 09:35 103 123/72 06/14/18 08:20 Room Air 06/14/18 08:00 97.7 103 19 123/72 (89) 96 Height (Feet): 5 Height (Inches): 3.00 Weight (Pounds): 166 Objective General Appearance: no apparent distress, alert HEENT: NCAT, MMM, EOMI, Cardiovascular: normal peripheral pulses, normal rate, regular rhythm Respiratory/Chest: chest wall non-tender, lungs clear, d Abd: Soft , Nt, ND, + BS Extremities: normal range of motion, non-tender, normal inspection Neurologic: alert, oriented x 3, responsive, normal mood/affect Laboratory Tests Test 06/15/18 05:50 White Blood Count 10.0 K/UL (4.8-10.8) Red Blood Count 3.55 M/UL (4.20-5.40) L Hemoglobin 9.7 G/DL (12.0-16.0) L Hematocrit 29.0 % (37.0-47.0) L Mean Corpuscular Volume 82 FL (80-99) Mean Corpuscular Hemoglobin 27.4 PG (27.0-31.0) Mean Corpuscular Hemoglobin Concent 33.6 G/DL (32.0-36.0) Red Cell Distribution Width 12.1 % (11.6-14.8) Platelet Count 377 K/UL (150-450) Mean Platelet Volume 6.6 FL (6.5-10.1) Neutrophils (%) (Auto) 73.9 % (45.0-75.0) Lymphocytes (%) (Auto) 17.5 % (20.0-45.0) L Monocytes (%) (Auto) 5.7 % (1.0-10.0) Eosinophils (%) (Auto) 1.8 % (0.0-3.0) Basophils (%) (Auto) 1.1 % (0.0-2.0) Sodium Level 144 MMOL/L (136-145) Potassium Level 3.6 MMOL/L (3.5-5.1) Chloride Level 110 MMOL/L (98-107) H Carbon Dioxide Level 26 MMOL/L (21-32) Anion Gap 9 mmol/L (5-15) Blood Urea Nitrogen 11 mg/dL (7-18) Creatinine 0.5 MG/DL (0.55-1.30) L Estimat Glomerular Filtration Rate > 60 mL/min (>60) Glucose Level 115 MG/DL (74-106) H Calcium Level 8.7 MG/DL (8.5-10.1) Current Medications Medications (Trade) Dose Ordered Sig/Fernanda Route PRN Reason Start Time Stop Time Status Last Admin Dose Admin Acetaminophen (Tylenol) 650 mg Q8H PRN ORAL fever 06/06/18 18:16 07/06/18 18:14 06/08/18 05:43 Dextrose (Dextrose 50%) 25 ml Q30M PRN IV Hypoglycemia 06/07/18 11:30 07/07/18 11:29 Dextrose (Dextrose 50%) 50 ml Q30M PRN IV Hypoglycemia 06/07/18 11:30 07/07/18 11:29 Glipizide (Glucotrol) 10 mg DAILY ORAL 06/07/18 09:00 07/07/18 08:59 06/14/18 09:35 Guaifenesin/ Dextromethorphan (Robitussin DM Syrup) 10 ml Q4H PRN ORAL For Cough 06/08/18 22:30 07/08/18 22:29 06/13/18 00:40 Heparin Sodium (Porcine) (Heparin 5000 units/ml) 5,000 units EVERY 8 HOURS SUBQ 06/06/18 22:00 07/06/18 21:59 06/15/18 06:19 Insulin Aspart (NovoLOG) BEFORE MEALS AND HS SUBQ 06/06/18 21:00 07/06/18 20:59 06/15/18 06:20 Insulin Human NPH (Humulin N) 15 units DAILY SUBQ 06/07/18 13:00 07/07/18 12:59 06/14/18 09:36 Insulin Human NPH (Humulin N) 30 units BEDTIME SUBQ 06/07/18 23:00 07/07/18 22:59 06/14/18 20:45 Levothyroxine Sodium (Synthroid) 25 mcg Q24H ORAL 06/07/18 06:30 07/07/18 06:29 06/15/18 06:17 Meropenem 1 gm/ Sodium Chloride 55 ml @ 110 mls/hr Q8HR IVPB 06/11/18 14:00 06/16/18 13:59 06/15/18 06:17 Metoprolol Tartrate (Lopressor) 25 mg Q12HR ORAL 06/06/18 21:00 07/06/18 20:59 06/14/18 20:44 Ondansetron HCl (Zofran) 4 mg Q6H PRN IVP Nausea & Vomiting 06/09/18 08:00 07/09/18 07:59 06/11/18 12:05 Sodium Chloride 1,000 ml @ 125 mls/hr Q8H IV 06/06/18 18:58 07/06/18 18:57 06/15/18 04:32 Jaleel Llanos MD Jun 15, 2018 07:52
[2018-06-15] MEDS: GlipiZIDE 5mg tab ORAL SCH (09:26)
[2018-06-15] MEDS: Metoprolol 25mg tab ORAL SCH ×2 (09:26→21:03)
[2018-06-15] MEDS: Insulin NPH SUBQ SCH (09:29)
--- NOTE | 2018-06-15 12:23 | General Progress Note ---
Assessment/Plan Problem List: (1) Bacteremia due to Klebsiella pneumoniae Assessment & Plan: abx changed to merrem per ID wbc starting to improve today to 10 cont to monitor cont abx appreciate ID recs repeat bcx ngtd will plan for appropriate discharge meds per ID recs ICD Codes: R78.81 - Bacteremia SNOMED: 789745947, 589106100376 (2) UTI due to Klebsiella species Assessment & Plan: cont abx ID consulted ICD Codes: N39.0 - Urinary tract infection, site not specified; B96.1 - Klebsiella pneumoniae [K. pneumoniae] as the cause of diseases classified elsewhere SNOMED: 614005205043148 (3) Sepsis Assessment & Plan: stable last set of bcx ngtd due to klebsiella and influenza A sens to lvq ID consulted, appreciate recs CT imaging reviewed, thickening at the esophagus, will benefit from outpt gi f/ u recheck CMP tomorrow to f/u on Alk phos levels ICD Codes: A41.9 - Sepsis, unspecified organism SNOMED: 41034095 Qualifiers: Qualified Codes: A41.9 - Sepsis, unspecified organism (4) Complicated UTI (urinary tract infection) Assessment & Plan: due to above cont above management ICD Codes: N39.0 - Urinary tract infection, site not specified SNOMED: 34747050 (5) Influenza Assessment & Plan: tamiflu started fluids for hydration management per above ICD Codes: J11.1 - Influenza due to unidentified influenza virus with other respiratory manifestations SNOMED: 6184325 (6) Lactic acid blood increased Assessment & Plan: elevated on admit 3.6 resolved due to sepsis ICD Codes: R79.89 - Other specified abnormal findings of blood chemistry SNOMED: 1719443 (7) Essential hypertension Assessment & Plan: resume home meds takes metoprolol 25mg bid tele ICD Codes: I10 - Essential (primary) hypertension SNOMED: 93807084 (8) Diabetes Assessment & Plan: iss accuchecks on metformin and insulin at home ppx: heparin, scd diet: ccd5 Please call at any time for any questions Thank you, Romero Lemos MD ICD Codes: E11.9 - Type 2 diabetes mellitus without complications SNOMED: 27066339 Qualifiers: Qualified Codes: E10.9 - Type 1 diabetes mellitus without complications (9) Hypomagnesemia Assessment & Plan: resolved ICD Codes: E83.42 - Hypomagnesemia SNOMED: 498505776 (10) Hypokalemia Assessment & Plan: resolved will monitor now ICD Codes: E87.6 - Hypokalemia SNOMED: 17380141 (11) Weakness Assessment & Plan: therapy to eval before dc ICD Codes: R53.1 - Weakness SNOMED: 04968186 Assessment/Plan diet: diabetic diet ppx: heparin, scd I have spent over 42 mins in this patient's care and over 37 mins in face to face time including coordinating care. Subjective Allergies: Coded Allergies: No Known Allergies (Unverified , 06/06/18) Subjective f/u sepsis, bacteremia denies any complaints no acute events overnight wbc starting to improve today denies fevers/chills 12 point ros negative except for the above Objective Last 24 Hour Vital Signs Date Time Temp Pulse Resp B/P (MAP) Pulse Ox O2 Delivery O2 Flow Rate FiO2 06/15/18 09:26 93 146/68 06/15/18 08:20 Room Air 06/15/18 08:00 97.2 93 146/68 (94) 06/15/18 07:47 108 06/15/18 04:00 98.1 83 18 135/62 (86) 97 06/15/18 04:00 83 06/15/18 00:00 84 06/15/18 00:00 98.0 79 18 138/65 (89) 98 06/14/18 21:00 Room Air 06/14/18 20:44 88 125/66 06/14/18 20:00 98.9 88 18 125/66 (85) 95 06/14/18 20:00 92 06/14/18 16:00 97.1 66 20 117/79 (92) 06/14/18 15:26 87 Intake and Output 06/14/18 06/15/18 19:00 07:00 Intake Total 480 ml 1918.75 ml Output Total 3800 ml Balance 480 ml -1881.25 ml Intake Oral 480 ml 590 ml IV Total 1328.75 ml Output Urine Total 3800 ml # Voids 3 3 # Bowel Movements 3 1 Laboratory Tests 06/15/18 05:50: White Blood Count 10.0, Red Blood Count 3.55L, Hemoglobin 9.7L, Hematocrit 29.0L , Mean Corpuscular Volume 82, Mean Corpuscular Hemoglobin 27.4, Mean Corpuscular Hemoglobin Concent 33.6, Red Cell Distribution Width 12.1, Platelet Count 377, Mean Platelet Volume 6.6, Neutrophils (%) (Auto) 73.9, Lymphocytes (% ) (Auto) 17.5L, Monocytes (%) (Auto) 5.7, Eosinophils (%) (Auto) 1.8, Basophils (%) (Auto) 1.1, Sodium Level 144, Potassium Level 3.6, Chloride Level 110H, Carbon Dioxide Level 26, Anion Gap 9, Blood Urea Nitrogen 11, Creatinine 0.5L, Estimat Glomerular Filtration Rate > 60, Glucose Level 115H, Calcium Level 8.7 Height (Feet): 5 Height (Inches): 3.00 Weight (Pounds): 166 General Appearance: no apparent distress, alert EENT: PERRL/EOMI, normal ENT inspection, TMs normal Neck: non-tender, normal alignment, supple, normal inspection Cardiovascular: normal peripheral pulses, normal rate, regular rhythm Respiratory/Chest: chest wall non-tender, lungs clear, normal breath sounds, no respiratory distress, no accessory muscle use Abdomen: normal bowel sounds, non tender, soft, no organomegaly, no mass Extremities: normal range of motion, non-tender, normal inspection 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
[2018-06-15] MEDS ORDERED: Guaifenesin/DM 10ml syrup ORAL PRN (18:30)
[2018-06-15] MEDS ORDERED: Insulin NPH SUBQ SCH (21:00)
[2018-06-16] VITALS: BP 144/70
[2018-06-16 04:00] VITALS: BP 153/77
[2018-06-16] MEDS: Levothyroxine 25mcg tab ORAL SCH (06:14)
[2018-06-16] MEDS: Meropenem 1 GM in NS 55 ML IVPB SCH ×3 (06:15→21:24)
[2018-06-16] MEDS: NovoLOG Insulin Flexpen SUBQ SCH ×4 (06:16→21:22)
[2018-06-16] MEDS: Heparin 5000 units/ml inj SUBQ SCH ×3 (06:16→21:23)
[2018-06-16 08:00] VITALS: BP 157/72
[2018-06-16 08:29] LABS: ALANINE AMINOTRANSFERASE 70 U/L (12-78); ALBUMIN/GLOBULIN RATIO 0.4 (1.0-2.7); ALKALINE PHOSPHATASE 309 U/L (46-116); ANION GAP 9 mmol/L (5-15); ASPARTATE AMINO TRANSFERASE 42 U/L (15-37); BILIRUBIN,TOTAL 0.4 MG/DL (0.2-1.0); BLOOD UREA NITROGEN 14 mg/dL (7-18); CALCIUM 8.8 MG/DL (8.5-10.1); CARBON DIOXIDE 25 MMOL/L (21-32); CHLORIDE 110 MMOL/L (98-107); CREATININE 0.6 MG/DL (0.55-1.30); POTASSIUM 3.5 MMOL/L (3.5-5.1); SODIUM 144 MMOL/L (136-145)
[2018-06-16] MEDS: GlipiZIDE 5mg tab ORAL SCH (08:55)
[2018-06-16] MEDS: Metoprolol 25mg tab ORAL SCH ×2 (08:56→18:09)
[2018-06-16] MEDS ORDERED: Insulin NPH SUBQ SCH ×2 (09:00→21:00)
--- NOTE | 2018-06-16 09:35 | Infectious Diseases Prog Note ---
Assessment/Plan Assessment/Plan The patient is a 57-year-old female with multiple medical problems, who has: Fever, sp Leukocytosis, improving 06/11 CT of A/P : ? Nephritis , no Abscess PSmaer : no blast Influenza A positive, SP Rx Urinary tract infection (Klebsiella pneumoniae, ? AmpC Resistance , did not respond well to Zosyn and Levaquin ) US : no Evid of urinary obstruction Bacteremia ( Kleb) due to urinary tract infection -repeat Bcx N TD Elevated alkaline phosphatase and hyperbilirubinemia US no evid of urinary obstruction/cholangitis Anemia Hyperlipidemia. Hypertension. Diabetes. PLAN: Continue the patient on Merrem d# 6 / 7 , if WBC cont to improve suggest to DC on IV Invanz (? AmpC Resistance , did not respond well to Zosyn and Levaquin ) -06/12 SP Tamiflu day # 5 /5 -06/11 SP Levaquin day # 3 -06/09 SP Zosyn day #2 Monitor blood cultures Monitor CBC Monitor BMP. Monitor liver function tests Rec Hem cons if leukocytosis for persists Subjective Allergies: Coded Allergies: No Known Allergies (Unverified , 06/06/18) Subjective Patient afebrile No complaints Objective Vital Signs Last 24 Hour Vital Signs Date Time Temp Pulse Resp B/P (MAP) Pulse Ox O2 Delivery O2 Flow Rate FiO2 06/16/18 08:56 98 157/72 06/16/18 08:00 97.3 98 19 157/72 (100) 95 06/16/18 04:00 98.2 98 19 153/77 (102) 96 06/16/18 00:00 98.2 94 20 144/70 (94) 97 06/15/18 21:03 100 135/62 06/15/18 21:00 Room Air 06/15/18 20:00 98.1 100 18 135/62 (86) 96 06/15/18 17:00 97.5 91 16 100/67 (78) 96 06/15/18 16:00 98.0 95 16 123/69 (87) 95 06/15/18 15:19 Room Air 06/15/18 12:00 97.9 107 16 123/67 (85) 96 06/15/18 11:46 113 Height (Feet): 5 Height (Inches): 3.00 Weight (Pounds): 166 Objective General: NAD HEENT: NCAT, MMM, EOMI, Cardiovascular: normal peripheral pulses, normal rate, regular rhythm Respiratory/Chest: chest wall non-tender, lungs clear, d Abd: Soft , Nt, ND, + BS Extremities: normal range of motion, non-tender, normal inspection Neurologic: alert, oriented x 3, responsive, normal mood/affect Laboratory Tests Test 06/16/18 06:35 Sodium Level 144 MMOL/L (136-145) Potassium Level 3.5 MMOL/L (3.5-5.1) Chloride Level 110 MMOL/L (98-107) H Carbon Dioxide Level 25 MMOL/L (21-32) Anion Gap 9 mmol/L (5-15) Blood Urea Nitrogen 14 mg/dL (7-18) Creatinine 0.6 MG/DL (0.55-1.30) Estimat Glomerular Filtration Rate > 60 mL/min (>60) Glucose Level 108 MG/DL (74-106) H Calcium Level 8.8 MG/DL (8.5-10.1) Total Bilirubin 0.4 MG/DL (0.2-1.0) Aspartate Amino Transf (AST/SGOT) 42 U/L (15-37) H Alanine Aminotransferase (ALT/SGPT) 70 U/L (12-78) Alkaline Phosphatase 309 U/L (46-116) H Total Protein 7.1 G/DL (6.4-8.2) Albumin 2.0 G/DL (3.4-5.0) L Globulin 5.1 g/dL Albumin/Globulin Ratio 0.4 (1.0-2.7) L Current Medications Medications (Trade) Dose Ordered Sig/Fernanda Route PRN Reason Start Time Stop Time Status Last Admin Dose Admin Acetaminophen (Tylenol) 650 mg Q8H PRN ORAL fever 06/15/18 18:30 07/06/18 18:14 Dextrose (Dextrose 50%) 25 ml Q30M PRN IV Hypoglycemia 06/15/18 16:30 07/07/18 11:29 Dextrose (Dextrose 50%) 50 ml Q30M PRN IV Hypoglycemia 06/15/18 16:30 07/07/18 11:29 Glipizide (Glucotrol) 10 mg DAILY ORAL 06/16/18 09:00 07/07/18 08:59 06/16/18 08:55 Guaifenesin/ Dextromethorphan (Robitussin DM Syrup) 10 ml Q4H PRN ORAL For Cough 06/15/18 18:30 07/08/18 22:29 Heparin Sodium (Porcine) (Heparin 5000 units/ml) 5,000 units EVERY 8 HOURS SUBQ 06/15/18 22:00 07/06/18 21:59 06/16/18 06:16 Insulin Aspart (NovoLOG) BEFORE MEALS AND HS SUBQ 06/15/18 16:30 07/06/18 20:59 06/15/18 21:04 Insulin Human NPH (Humulin N) 15 units DAILY SUBQ 06/16/18 09:00 07/07/18 12:59 06/16/18 09:12 Insulin Human NPH (Humulin N) 30 units BEDTIME SUBQ 06/15/18 21:00 07/07/18 22:59 06/15/18 21:04 Levothyroxine Sodium (Synthroid) 25 mcg Q24H ORAL 06/16/18 06:30 07/07/18 06:29 06/16/18 06:14 Meropenem 1 gm/ Sodium Chloride 55 ml @ 110 mls/hr Q8HR IVPB 06/15/18 22:00 06/18/18 13:59 06/16/18 06:15 Metoprolol Tartrate (Lopressor) 25 mg Q12HR ORAL 06/15/18 21:00 07/06/18 20:59 06/16/18 08:56 Ondansetron HCl (Zofran) 4 mg Q6H PRN IVP Nausea & Vomiting 06/15/18 16:28 07/09/18 16:27 Sodium Chloride 1,000 ml @ 125 mls/hr Q8H IV 06/15/18 16:30 07/06/18 18:57 06/16/18 08:55 Jaleel Llanos MD Jun 16, 2018 09:35
[2018-06-16 12:00] VITALS: BP 150/73
--- NOTE | 2018-06-16 13:15 | General Progress Note ---
Assessment/Plan Problem List: (1) Bacteremia due to Klebsiella pneumoniae Assessment & Plan: abx changed to merrem per ID wbc starting to improve, pending AM labs for today cont to monitor cont abx appreciate ID recs repeat bcx ngtd will plan for appropriate discharge meds per ID recs ICD Codes: R78.81 - Bacteremia SNOMED: 373213893, 680330008823 (2) UTI due to Klebsiella species Assessment & Plan: cont abx ID consulted ICD Codes: N39.0 - Urinary tract infection, site not specified; B96.1 - Klebsiella pneumoniae [K. pneumoniae] as the cause of diseases classified elsewhere SNOMED: 129559346388914 (3) Sepsis Assessment & Plan: stable last set of bcx ngtd due to klebsiella and influenza A sens to lvq ID consulted, appreciate recs CT imaging reviewed, thickening at the esophagus, will benefit from outpt gi f/ u recheck CMP tomorrow to f/u on Alk phos levels ICD Codes: A41.9 - Sepsis, unspecified organism SNOMED: 38964821 Qualifiers: Qualified Codes: A41.9 - Sepsis, unspecified organism (4) Complicated UTI (urinary tract infection) Assessment & Plan: due to above cont above management ICD Codes: N39.0 - Urinary tract infection, site not specified SNOMED: 44388442 (5) Influenza Assessment & Plan: tamiflu started fluids for hydration management per above ICD Codes: J11.1 - Influenza due to unidentified influenza virus with other respiratory manifestations SNOMED: 5282831 (6) Lactic acid blood increased Assessment & Plan: elevated on admit 3.6 resolved due to sepsis ICD Codes: R79.89 - Other specified abnormal findings of blood chemistry SNOMED: 9321429 (7) Essential hypertension Assessment & Plan: resume home meds takes metoprolol 25mg bid tele ICD Codes: I10 - Essential (primary) hypertension SNOMED: 65941771 (8) Diabetes Assessment & Plan: iss accuchecks on metformin and insulin at home ppx: heparin, scd diet: ccd5 Please call at any time for any questions Thank you, Romero Lemos MD ICD Codes: E11.9 - Type 2 diabetes mellitus without complications SNOMED: 65357258 Qualifiers: Qualified Codes: E10.9 - Type 1 diabetes mellitus without complications (9) Hypomagnesemia Assessment & Plan: resolved ICD Codes: E83.42 - Hypomagnesemia SNOMED: 194462713 (10) Hypokalemia Assessment & Plan: resolved will monitor now ICD Codes: E87.6 - Hypokalemia SNOMED: 57806065 (11) Weakness Assessment & Plan: therapy to eval before dc ICD Codes: R53.1 - Weakness SNOMED: 06068686 Assessment/Plan diet: diabetic diet ppx: heparin, scd I have spent over 42 mins in this patient's care and over 37 mins in face to face time including coordinating care. Subjective Allergies: Coded Allergies: No Known Allergies (Unverified , 06/06/18) Subjective f/u sepsis, bacteremia denies any complaints no acute events overnight wbc seems to have improved pending labs from today denies fevers/chills 12 point ros negative except for the above Objective Last 24 Hour Vital Signs Date Time Temp Pulse Resp B/P (MAP) Pulse Ox O2 Delivery O2 Flow Rate FiO2 06/16/18 12:00 97.1 87 20 150/73 (98) 100 06/16/18 09:00 Room Air 06/16/18 08:56 98 157/72 06/16/18 08:00 97.3 98 19 157/72 (100) 95 06/16/18 04:00 98.2 98 19 153/77 (102) 96 06/16/18 00:00 98.2 94 20 144/70 (94) 97 06/15/18 21:03 100 135/62 06/15/18 21:00 Room Air 06/15/18 20:00 98.1 100 18 135/62 (86) 96 06/15/18 17:00 97.5 91 16 100/67 (78) 96 06/15/18 16:00 98.0 95 16 123/69 (87) 95 06/15/18 15:19 Room Air Intake and Output 06/15/18 06/16/18 19:00 07:00 Intake Total 605 ml 1485 ml Output Total 300 ml Balance 305 ml 1485 ml Intake Oral 480 ml IV Total 125 ml 1485 ml Output Urine Total 300 ml # Voids 3 2 Laboratory Tests 06/16/18 06:35: Sodium Level 144, Potassium Level 3.5, Chloride Level 110H, Carbon Dioxide Level 25, Anion Gap 9, Blood Urea Nitrogen 14, Creatinine 0.6, Estimat Glomerular Filtration Rate > 60, Glucose Level 108H, Calcium Level 8.8, Total Bilirubin 0.4, Aspartate Amino Transf (AST/SGOT) 42H, Alanine Aminotransferase ( ALT/SGPT) 70, Alkaline Phosphatase 309H, Total Protein 7.1, Albumin 2.0L, Globulin 5.1, Albumin/Globulin Ratio 0.4L Height (Feet): 5 Height (Inches): 3.00 Weight (Pounds): 166 General Appearance: no apparent distress, alert EENT: PERRL/EOMI, normal ENT inspection, TMs normal, pharynx normal Neck: non-tender, normal alignment, supple, normal inspection Cardiovascular: normal peripheral pulses, normal rate, regular rhythm Respiratory/Chest: chest wall non-tender, lungs clear, normal breath sounds, no respiratory distress, no accessory muscle use Abdomen: normal bowel sounds, non tender, soft, no organomegaly, no mass, abnormal bowel sounds Extremities: normal range of motion, non-tender, normal inspection 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
[2018-06-16 14:18] LABS: BASOPHILS % (AUTO) 1.2 % (0.0-2.0); EOSINOPHILS % (AUTO) 0.7 % (0.0-3.0); HEMATOCRIT 29.7 % (37.0-47.0); LYMPHOCYTES % (AUTO) 14.7 % (20.0-45.0); MEAN CORPUSCULAR VOLUME 82 FL (80-99); MONOCYTES % (AUTO) 4.5 % (1.0-10.0); PLATELET COUNT 394 K/UL (150-450); RED BLOOD COUNT 3.64 M/UL (4.20-5.40); RED CELL DISTRIBUTION WIDTH 12.5 % (11.6-14.8); WHITE BLOOD COUNT 10.5 K/UL (4.8-10.8)
[2018-06-16 14:33] LABS: ANION GAP 8 mmol/L (5-15); BLOOD UREA NITROGEN 13 mg/dL (7-18); CALCIUM 8.7 MG/DL (8.5-10.1); CARBON DIOXIDE 26 MMOL/L (21-32); CHLORIDE 110 MMOL/L (98-107); CREATININE 0.4 MG/DL (0.55-1.30); POTASSIUM 3.6 MMOL/L (3.5-5.1); SODIUM 143 MMOL/L (136-145)
[2018-06-16 16:00] VITALS: BP 162/73
[2018-06-16 20:00] VITALS: BP 146/70
[2018-06-16] MEDS: Insulin NPH SUBQ SCH (21:00)
[2018-06-17] VITALS: BP 154/82
[2018-06-17 04:00] VITALS: BP 156/80
[2018-06-17] MEDS: NovoLOG Insulin Flexpen SUBQ SCH ×4 (05:57→21:02)
[2018-06-17] MEDS: Heparin 5000 units/ml inj SUBQ SCH ×3 (05:57→21:01)
[2018-06-17] MEDS: Levothyroxine 25mcg tab ORAL SCH (05:59)
[2018-06-17] MEDS: Meropenem 1 GM in NS 55 ML IVPB SCH ×3 (05:59→21:07)
[2018-06-17 08:00] VITALS: BP 162/72
[2018-06-17 08:12] LABS: EOSINOPHILS % (AUTO) 1.4 % (0.0-3.0); HEMATOCRIT 29.6 % (37.0-47.0); HEMOGLOBIN 9.8 G/DL (12.0-16.0); LYMPHOCYTES % (AUTO) 16.3 % (20.0-45.0); MEAN CORPUSCULAR VOLUME 82 FL (80-99); MONOCYTES % (AUTO) 5.9 % (1.0-10.0); NEUTROPHILS % (AUTO) 75.5 % (45.0-75.0); PLATELET COUNT 362 K/UL (150-450); RED BLOOD COUNT 3.63 M/UL (4.20-5.40); RED CELL DISTRIBUTION WIDTH 12.5 % (11.6-14.8); WHITE BLOOD COUNT 7.7 K/UL (4.8-10.8)
[2018-06-17] MEDS: Metoprolol 25mg tab ORAL SCH ×2 (08:38→20:59)
[2018-06-17] MEDS: GlipiZIDE 5mg tab ORAL SCH (08:38)
[2018-06-17] MEDS: Insulin NPH SUBQ SCH ×2 (08:40→21:00)
[2018-06-17] MEDS ORDERED: Insulin NPH SUBQ SCH (09:00)
--- NOTE | 2018-06-17 09:35 | General Progress Note ---
Assessment/Plan Problem List: (1) Bacteremia due to Klebsiella pneumoniae Assessment & Plan: abx changed to merrem per ID wbc improving, will dc home tomorrow after completion of abx course if okay with ID cont to monitor cont abx appreciate ID recs repeat bcx ngtd ICD Codes: R78.81 - Bacteremia SNOMED: 927693131, 941688923241 (2) UTI due to Klebsiella species Assessment & Plan: cont abx ID consulted ICD Codes: N39.0 - Urinary tract infection, site not specified; B96.1 - Klebsiella pneumoniae [K. pneumoniae] as the cause of diseases classified elsewhere SNOMED: 432498548635548 (3) Sepsis Assessment & Plan: stable last set of bcx ngtd due to klebsiella and influenza A sens to lvq ID consulted, appreciate recs CT imaging reviewed, thickening at the esophagus, will benefit from outpt gi f/ u recheck CMP tomorrow to f/u on Alk phos levels ICD Codes: A41.9 - Sepsis, unspecified organism SNOMED: 68119733 Qualifiers: Qualified Codes: A41.9 - Sepsis, unspecified organism (4) Complicated UTI (urinary tract infection) Assessment & Plan: due to above cont above management ICD Codes: N39.0 - Urinary tract infection, site not specified SNOMED: 10530460 (5) Influenza Assessment & Plan: tamiflu started fluids for hydration management per above ICD Codes: J11.1 - Influenza due to unidentified influenza virus with other respiratory manifestations SNOMED: 9286827 (6) Lactic acid blood increased Assessment & Plan: elevated on admit 3.6 resolved due to sepsis ICD Codes: R79.89 - Other specified abnormal findings of blood chemistry SNOMED: 7771176 (7) Essential hypertension Assessment & Plan: resume home meds takes metoprolol 25mg bid tele ICD Codes: I10 - Essential (primary) hypertension SNOMED: 29660832 (8) Diabetes Assessment & Plan: iss accuchecks on metformin and insulin at home ppx: heparin, scd diet: [id number] Please call at any time for any questions Thank you, Romero Lemos MD ICD Codes: E11.9 - Type 2 diabetes mellitus without complications SNOMED: 43589822 Qualifiers: Qualified Codes: E10.9 - Type 1 diabetes mellitus without complications (9) Hypomagnesemia Assessment & Plan: resolved ICD Codes: E83.42 - Hypomagnesemia SNOMED: 580366075 (10) Hypokalemia Assessment & Plan: resolved will monitor now ICD Codes: E87.6 - Hypokalemia SNOMED: 96195925 (11) Weakness Assessment & Plan: therapy to eval before dc ICD Codes: R53.1 - Weakness SNOMED: 98817687 Status: stable Assessment/Plan diet: diabetic diet ppx: heparin, scd I have spent over 41 mins in this patient's care and over 35 mins in face to face time including coordinating care. Subjective Allergies: Coded Allergies: No Known Allergies (Unverified , 06/06/18) Subjective f/u sepsis, bacteremia no acute events overnight patient feeling a bit weak today wbc improving, appreciate ID Recs, will dc home tomorrow if okay with ID denies fevers/chills 12 point ros negative except for the above Objective Last 24 Hour Vital Signs Date Time Temp Pulse Resp B/P (MAP) Pulse Ox O2 Delivery O2 Flow Rate FiO2 06/17/18 08:38 89 162/72 06/17/18 08:00 97.7 89 18 162/72 (102) 97 06/17/18 04:00 98.2 88 20 156/80 (105) 96 06/17/18 00:00 98.8 98 20 154/82 (106) 98 06/16/18 21:00 Room Air 06/16/18 20:00 98.2 89 20 146/70 (95) 98 06/16/18 18:09 100 162/73 06/16/18 16:00 97.2 100 20 162/73 (102) 98 06/16/18 12:00 97.1 87 20 150/73 (98) 100 Intake and Output 06/16/18 06/17/18 19:00 07:00 Intake Total 1960 ml 580 ml Balance 1960 ml 580 ml Intake Oral 780 ml 360 ml IV Total 1180 ml 220 ml # Voids 6 3 # Bowel Movements 1 Laboratory Tests 06/16/18 13:55: White Blood Count 10.5, Red Blood Count 3.64L, Hemoglobin 10.0L, Hematocrit 29.7L, Mean Corpuscular Volume 82, Mean Corpuscular Hemoglobin 27.5, Mean Corpuscular Hemoglobin Concent 33.7, Red Cell Distribution Width 12.5, Platelet Count 394, Mean Platelet Volume 6.3L, Neutrophils (%) (Auto) 79.0H, Lymphocytes (%) (Auto) 14.7L, Monocytes (%) (Auto) 4.5, Eosinophils (%) (Auto) 0.7, Basophils (%) (Auto) 1.2, Sodium Level 143, Potassium Level 3.6, Chloride Level 110H, Carbon Dioxide Level 26, Anion Gap 8, Blood Urea Nitrogen 13, Creatinine 0.4L, Estimat Glomerular Filtration Rate > 60, Glucose Level 110H, Calcium Level 8.7 06/17/18 07:55: White Blood Count 7.7, Red Blood Count 3.63L, Hemoglobin 9.8L, Hematocrit 29.6L , Mean Corpuscular Volume 82, Mean Corpuscular Hemoglobin 27.0, Mean Corpuscular Hemoglobin Concent 33.1, Red Cell Distribution Width 12.5, Platelet Count 362, Mean Platelet Volume 6.3L, Neutrophils (%) (Auto) 75.5H, Lymphocytes (%) (Auto) 16.3L, Monocytes (%) (Auto) 5.9, Eosinophils (%) (Auto) 1.4, Basophils (%) (Auto) 1.0 Height (Feet): 5 Height (Inches): 3.00 Weight (Pounds): 166 General Appearance: WD/WN, no apparent distress, alert EENT: PERRL/EOMI, normal ENT inspection, TMs normal Neck: non-tender, normal alignment, supple, normal inspection Cardiovascular: normal peripheral pulses, normal rate, regular rhythm Respiratory/Chest: chest wall non-tender, lungs clear, normal breath sounds Abdomen: normal bowel sounds, non tender, soft, no organomegaly, no mass Extremities: normal range of motion, non-tender, normal inspection Edema: trace edema, mild edema Neurologic: display maker II-XII grossly normal, no motor/sensory deficits, alert, oriented x 3 Skin: normal pigmentation, warm/dry Romero Lemos MD Jun 17, 2018 09:35
[2018-06-17 12:00] VITALS: BP 136/68
[2018-06-17 16:00] VITALS: BP 116/69
[2018-06-17 19:39] VITALS: BP 129/61
[2018-06-18] VITALS: BP 134/60
[2018-06-18] MEDS: Levothyroxine 25mcg tab ORAL SCH (06:02)
[2018-06-18] MEDS: Meropenem 1 GM in NS 55 ML IVPB SCH (06:03)
[2018-06-18] MEDS: Heparin 5000 units/ml inj SUBQ SCH (06:06)
[2018-06-18] MEDS: NovoLOG Insulin Flexpen SUBQ SCH ×2 (06:07→11:30)
[2018-06-18 07:14] LABS: BASOPHILS % (AUTO) 0.5 % (0.0-2.0); EOSINOPHILS % (AUTO) 1.6 % (0.0-3.0); HEMATOCRIT 28.4 % (37.0-47.0); HEMOGLOBIN 9.4 G/DL (12.0-16.0); LYMPHOCYTES % (AUTO) 23.3 % (20.0-45.0); MEAN CORPUSCULAR VOLUME 81 FL (80-99); MONOCYTES % (AUTO) 7.4 % (1.0-10.0); NEUTROPHILS % (AUTO) 67.3 % (45.0-75.0); PLATELET COUNT 341 K/UL (150-450); RED BLOOD COUNT 3.51 M/UL (4.20-5.40); RED CELL DISTRIBUTION WIDTH 11.9 % (11.6-14.8)
[2018-06-18 07:23] LABS: ANION GAP 8 mmol/L (5-15); BLOOD UREA NITROGEN 16 mg/dL (7-18); CALCIUM 9.1 MG/DL (8.5-10.1); CARBON DIOXIDE 29 MMOL/L (21-32); CHLORIDE 109 MMOL/L (98-107); CREATININE 0.5 MG/DL (0.55-1.30); POTASSIUM 3.3 MMOL/L (3.5-5.1); SODIUM 146 MMOL/L (136-145)
[2018-06-18 08:00] VITALS: BP 157/78
[2018-06-18] MEDS: GlipiZIDE 5mg tab ORAL SCH (08:22)
[2018-06-18 08:23] VITALS: BP 157/78
[2018-06-18] MEDS: Metoprolol 25mg tab ORAL SCH (08:23)
--- NOTE | 2018-06-18 09:24 | Discharge Summary ---
Discharge Summary Hospital Course Date of Admission Jun 06, 2018 at 16:15 Date of Discharge 06/18/18 Admitting Diagnosis SEPSIS HPI Alexa Melton is a 57 year old female who was admitted on Jun 06, 2018 at 16:15 for Sepsis Hospital Course 57 yo female with h/o htn, dm, hld presents with complaints of nausea/vomiting, fevers/chills that started on Monday. States she has been feeling worse and worse and is unsure why. States she is compliant with all of her medications. Patient denies any diarrhea/constipation however admits to burning urination since Monday as well, along with increased frequency, denies hematuria. Denies being aware of being around any sick contacts.Denies any cp, sob, palpitations. Patient admitted to the ED and noted to have a positive UA and +influenza A. completed tamiflu course. blood cx grew klebsiella pneumoniae, patient was placed on broad spectrum abx however wbc continue to increase, ID was consulted, abx change to meropenem and wbc has since improved, patient completed 7 days of tyrone. patient feeling much better today and stable for dc home instructed to f/u with PCP in 1 week (1) Bacteremia due to Klebsiella pneumoniae Assessment & Plan: abx changed to merrem per ID wbc improving, completed meropenem dose per ID and wbc have resolved, no growth on repeat bcx cont to monitor cont abx appreciate ID recs repeat bcx ngtd ICD Codes: R78.81 - Bacteremia SNOMED: 360801800, 374891709636 (2) UTI due to Klebsiella species Assessment & Plan: cont abx ID consulted ICD Codes: N39.0 - Urinary tract infection, site not specified; B96.1 - Klebsiella pneumoniae [K. pneumoniae] as the cause of diseases classified elsewhere SNOMED: 234024715981319 (3) Sepsis Assessment & Plan: stable last set of bcx ngtd due to klebsiella and influenza A sens to lvq ID consulted, appreciate recs CT imaging reviewed, thickening at the esophagus, will benefit from outpt gi f/ u recheck CMP tomorrow to f/u on Alk phos levels ICD Codes: A41.9 - Sepsis, unspecified organism SNOMED: 80352938 Qualifiers: Qualified Codes: A41.9 - Sepsis, unspecified organism (4) Complicated UTI (urinary tract infection) Assessment & Plan: due to above cont above management ICD Codes: N39.0 - Urinary tract infection, site not specified SNOMED: 46103893 (5) Influenza Assessment & Plan: tamiflu started fluids for hydration management per above ICD Codes: J11.1 - Influenza due to unidentified influenza virus with other respiratory manifestations SNOMED: 4393547 (6) Lactic acid blood increased Assessment & Plan: elevated on admit 3.6 resolved due to sepsis ICD Codes: R79.89 - Other specified abnormal findings of blood chemistry SNOMED: 2659145 (7) Essential hypertension Assessment & Plan: resume home meds takes metoprolol 25mg bid tele ICD Codes: I10 - Essential (primary) hypertension SNOMED: 08306449 (8) Diabetes Assessment & Plan: iss accuchecks on metformin and insulin at home Physical exam: General Appearance: WD/WN, no apparent distress, alert EENT: PERRL/EOMI, normal ENT inspection, TMs normal Neck: non-tender, normal alignment, supple, normal inspection Cardiovascular: normal peripheral pulses, normal rate, regular rhythm Respiratory/Chest: chest wall non-tender, lungs clear, normal breath sounds Abdomen: normal bowel sounds, non tender, soft, no organomegaly, no mass Extremities: normal range of motion, non-tender, normal inspection Edema: trace edema, mild edema Neurologic: stock turner II-XII grossly normal, no motor/sensory deficits, alert, oriented x 3 Skin: normal pigmentation, warm/dry stable f/u pcp in 1 week patient is aware of dispo plan I have spent over 40 minutes in the coordination of care and arranging for appropriate discharge for patient. Discharge Medications Continued Medications: Glipizide* (Glucotrol*) 5 Mg Tablet 10 MG ORAL BIDAC for T2DM, TAB (This prescription has been renewed) Ibuprofen* (Motrin*) 600 Mg Tablet 600 MG ORAL Q6H PRN for For Headache, TAB (This prescription has been renewed) Levothyroxine Sodium* (Synthroid*) 25 Mcg Tablet 25 MCG ORAL DAILY for hypothyroid, TAB (This prescription has been renewed) Take in the morning on an empty stomach, at least 30 minutes before food. Metformin Hcl* (Metformin Hcl*) 1,000 Mg Tablet 1000 MG ORAL BID, TAB (This prescription has been renewed) Nph, Human Insulin Isophane (Humulin N) 100 Unit/1 Ml Vial 30 UNITS SUBQ BEDTIME, VIAL (This prescription has been renewed) Nph, Human Insulin Isophane (Humulin N) 100 Unit/1 Ml Vial 15 UNITS SUBQ DAILY, VIAL (This prescription has been renewed) Propranolol HCl (Propranolol HCl) 20 Mg Tablet 20 MG PO BID for HTN, TAB (This prescription has been renewed) Simvastatin (Zocor) 20 Mg Tablet 20 MG ORAL BEDTIME, TAB (This prescription has been renewed) [Xl-3] () 1 TAB PO Q4HR for cold sx (This prescription has been renewed) Discharge Condition Upon Discharge: stable Discharge Disposition Patient was discharged to Discharge Diagnoses: (1) Complicated UTI (urinary tract infection) (2) Bacteremia due to Klebsiella pneumoniae (3) Sepsis (4) UTI due to Klebsiella species (5) Influenza Romero Lemos MD Jun 18, 2018 09:24
[2018-06-18] MEDS: Insulin NPH SUBQ SCH (09:34)
== END 2018-06-18 13:40 | disposition home or self-care (01) | DRG 872 ==
LOC: EMR 15:12 → 2E 16:15 → EDBEDREQ 18:40 → 2E 19:51 → 4E 06-15 16:27
DX: A41.9 Sepsis, unspecified organism (principal); N39.0 Urinary tract infection, site not specified; B96.1 Klebsiella pneumoniae [K. pneumoniae] as the cause of diseases classified elsewhere; I10 Essential (primary) hypertension; E11.9 Type 2 diabetes mellitus without complications; Z79.4 Long term (current) use of insulin; E78.5 Hyperlipidemia, unspecified; J10.1 Influenza due to other identified influenza virus with other respiratory manifestations; E87.6 Hypokalemia; D64.9 Anemia, unspecified; E83.42 Hypomagnesemia
CPT/HCPCS: 36415; 71045; 74177; 76700; 80048; 80053; 80076; 81003; 82248; 82962; 83036; 83605; 83735; 84132; 84484; 85007; 85025; 85060; 86710; 87040; 87086; 87181; 87324; 93005; 96361; 96365; 96375; 99291; J1815; J2405; J8499